=== PATIENT | female | born 1930 | race Caucasian/White ===

== ENCOUNTER 2016-08-11 05:19 | Inpatient (IN) | payer MEDICARE, OTHER ==
--- NOTE | 2016-07-17 12:03 | EKG REPORT ---
SEVERITY:- ABNORMAL ECG - ATRIAL FIBRILLATION, V-RATE 43-53 VENTRICULAR BIGEMINY ANTERIOR INFARCT, AGE INDETERMINATE : Confirmed by: Melo Hong 17-Jul-2016 12:02:24
[2016-07-17 13:03] LABS: HEMATOCRIT 35.2 % (36.0-47.0); HEMOGLOBIN 11.5 g/dL (12.0-15.5); HGB HCT DIFFERENCE -0.7; MEAN CORPUSCULAR HEMOGLOBIN 27.7 pg (27.0-33.4); MEAN CORPUSCULAR HGB CONC 32.6 g/dL (32.0-36.0); MEAN CORPUSCULAR VOLUME 85 fl (80-97); RED BLOOD COUNT 4.15 10^6/uL (3.72-5.28); RED CELL DISTRIBUTION WIDTH 14.8 % (11.5-14.0); WHITE BLOOD COUNT 9.9 10^3/uL (4.0-10.5)
[2016-07-17 13:12] LABS: APPEARANCE,URINE CLEAR; BILIRUBIN,URINE NEGATIVE (NEGATIVE); GLUCOSE, URINE NEGATIVE (NEGATIVE); KETONES,URINE NEGATIVE (NEGATIVE); LEUKOCYTE ESTERASE,URINE TRACE (NEGATIVE); NITRITE,URINE NEGATIVE (NEGATIVE); PROTEIN,URINE NEGATIVE (NEGATIVE); UROBILINOGEN,URINE NEGATIVE mg/dL (<2.0)
[2016-07-17 13:25] LABS: ANION GAP 11 (5-19); BLOOD UREA NITROGEN 14 mg/dL (7-20); CALCIUM 9.7 mg/dL (8.4-10.2); CARBON DIOXIDE 31 mmol/L (22-30); CHLORIDE 98 mmol/L (98-107); CREATININE RESULT 0.59 mg/dL (0.52-1.25); GLUCOSE 122 mg/dL (75-110); SODIUM 139.7 mmol/L (137-145)
[~2016-08-11 05:19] MED LIST: BUPIVACAINE INJ/PF LIPOSOME/PF 266 MG/20 ML SDV INFIL PRN; CEFAZOLIN INJ 1 GM VIAL IV PRN; IBUPROFEN 800 MG in NORMAL SALINE 250 ML IV PRN; LACTATED RINGERS 1000 ML IV PRN; LANSOPRAZOLE 15 MG TAB.RAP.DR PO PRN; LIDOCAINE 0.5% INJ-PF (5 MG/ML) 50 ML SDV SUBCUT PRN; OXYCODONE HCL SR 10 MG TABLET PO PRN; SCOPOLAMINE HYDROBROMIDE 1.5 MG PATCH.TD72 TD PRN; VANCOMYCIN HCL 1,000 MG in DEXTROSE 5%-WATER 250 ML IV PRN
[2016-08-11 06:20] LABS: PROTHROMBIN TIME 13.5 SEC (11.4-15.4)
[2016-08-11 06:21] LABS: PARTIAL THROMBOPLASTIN TIME 28.6 SEC (23.5-35.8)
[2016-08-11] MEDS ORDERED: THROMBIN (BOVINE) TOPICAL 20000 UNIT VIAL ONE (06:44)
[2016-08-11] MEDS ORDERED: BUPIVACAINE INJ/PF LIPOSOME/PF 266 MG/20 ML SDV ONE (06:44)
[2016-08-11] MEDS ORDERED: THROMBIN (BOVINE) TOPICAL 5000 UNIT VIAL ONE (06:44)
[2016-08-11] MEDS ORDERED: PROPOFOL INJ 200 MG/20 ML VIAL IV ONE (07:16)
[2016-08-11] MEDS ORDERED: EPHEDRINE SULFATE INJ 50 MG/1 ML AMPULE ONE (07:16)
[2016-08-11] MEDS ORDERED: FENTANYL CITRATE INJ/PF 100 MCG/2 ML AMPUL ONE (07:16)
[2016-08-11] MEDS ORDERED: MIDAZOLAM 2 MG/2 ML INJ ONE (07:16)
[2016-08-11] MEDS ORDERED: TRANEXAMIC ACID INJ/PF 1,000 MG/10 ML SDV IV ONE (07:16)
[2016-08-11] MEDS ORDERED: MORPHINE SULFATE 10 MG/ML INJ ONE (07:17)
[2016-08-11] MEDS ORDERED: (PENDING PHARMACY ID) (Guaifenesin [Mucinex] 600 MG) PO PRN (08:43)
[2016-08-11] MEDS ORDERED: MECLIZINE HCL 25 MG TABLET PO PRN (08:43)
[2016-08-11] MEDS ORDERED: (PENDING PHARMACY ID) (Bupropion Hcl [Wellbutrin Xl 150 Mg 24hr Tablet] 1 TAB) PO PRN (08:43)
--- NOTE | 2016-08-11 08:43 | Operative Report ---
Operative Report DATE OF SURGERY: 08/11/16 PREOPERATIVE DIAGNOSIS: r hip oa OPERATION: r duglas SURGEON: KATERINE PEREZ ANESTHESIA: Spinal TISSUE REMOVED OR ALTERED: Femoral head to pathology ESTIMATED BLOOD LOSS: 100 PROCEDURE: Implants used: Femur: #4. Striker Accolade 2 stem Acetabular shell:, 52 mm PSL shell Liner:, 36 mm flat cross-link polythene liner Head: 36 mm chrome cobalt head The patient is placed in a, left lateral decubitus position on the operating table. The, right lower extremity and hindquarter is prepped and draped in a sterile fashion. A curvilinear incision was made over the greater trochanter a posterior approach the hip was taken. The femoral head is dislocated and the femoral neck transected using an oscillating saw. Attention was next turned to the acetabulum. Soft tissues cleared off the acetabulum using electrocautery. The acetabulum was then prepared using a series of hemispherical reamers until a, 52 millimeters reamer is seated. Subsequently a D2 millimeters Yvan PSL shell is impacted into position and secured with one screw. A standard flat 36 millimeters cross-link liner is impacted into the shell. Attention was next turned to the femur. Access is gained to the femoral canal using a box osteotome to the piriformis fossa. The femur is then prepared using a series of broaches until a number four broach is seated. A trial reduction was now performed using a 36 millimeters head with, and standard neck. Preoperative leg length was recreated and is excellent anterior posterior stability. A decision was made to proceed with the above construct. All trial implants were removed. The wound is irrigated with pulsed lavage. A number 4 stem is impacted into the femoral canal. A trial reduction was again performed with a 36 mm head and a standard neck. Findings as previously. The hip was dislocated one last time and the final chrome-cobalt head is impacted onto the trunnion. The hip was reduced. Wound is copiously irrigated with pulsed lavage. Sent closed in layers using interrupted Vicryl followed by krunal. A sterile dressing is applied and the patient's returned to recovery room in satisfactory patient.
[2016-08-11] MEDS ORDERED: DIPHENHYDRAMINE HCL 50 MG/ML VIAL IV PRN ×2 (08:45→10:07)
[2016-08-11] MEDS ORDERED: ONDANSETRON HCL INJ/PF 4 MG/2 ML SDV IV PRN (08:45)
[2016-08-11] MEDS ORDERED: ONDANSETRON 4 MG TAB.RAPDIS PO PRN (08:45)
[2016-08-11] MEDS ORDERED: MORPHINE SULFATE 10 MG/ML INJ IV PRN ×3 (08:45)
[2016-08-11] MEDS ORDERED: ACETAMINOPHEN 325 MG TABLET PO PRN (08:45)
[2016-08-11] MEDS ORDERED: MAG HYDROX/AL HYDROX/SIMETH SUSP 30 ML UDCUP PO PRN (08:45)
[2016-08-11] MEDS ORDERED: MORPHINE SULFATE 10 MG/ML INJ IM PRN (08:45)
[2016-08-11] MEDS ORDERED: FUROSEMIDE INJ/PF 40 MG/4 ML SDV ONE (09:02)
[2016-08-11] MEDS: MORPHINE SULFATE 10 MG/ML INJ ONE ×2 (09:26→09:31)
[2016-08-11] MEDS ORDERED: FAMOTIDINE INJ/PF 20 MG/2 ML SDV IV ONE (09:27)
[2016-08-11] MEDS ORDERED: ASPIRIN 325 MG TABLET ONE (09:37)
[2016-08-11] MEDS ORDERED: GUAIFENESIN 600 MG TABLET.SA PO PRN ×2 (09:57→12:45)
[2016-08-11] MEDS ORDERED: ZINC PO SCH (10:00)
[2016-08-11] MEDS ORDERED: D3 PO SCH (10:00)
[2016-08-11] MEDS ORDERED: CALCIUM CARB PO SCH (10:00)
[2016-08-11] MEDS ORDERED: MAGNESIUM PO SCH (10:00)
[2016-08-11] MEDS ORDERED: DABIGATRAN ETEXILATE 150 MG CAPSULE PO SCH (10:00)
[2016-08-11] MEDS ORDERED: (PENDING PHARMACY ID) (Vit C/E/Zn/Coppr/Lutein/Zeaxan [Preservision Areds 2 Softgel] 1 EAC PO SCH (10:00)
[2016-08-11] MEDS ORDERED: RINGERS SOLUTION,LACTATED 500 ML IV PRN (10:01)
[2016-08-11] MEDS ORDERED: PROMETHAZINE HCL INJ 25 MG/1 ML VIAL IV PRN ×2 (10:07)
[2016-08-11] MEDS ORDERED: FENTANYL CITRATE INJ/PF 100 MCG/2 ML AMPUL IV PRN ×3 (10:07)
[2016-08-11 10:19] LABS: TROPONIN I < 0.012 ng/mL
[2016-08-11] MEDS ORDERED: ASPIRIN 325 MG TABLET PO ONE (11:00)
--- NOTE | 2016-08-11 11:55 | EKG REPORT ---
SEVERITY:- ABNORMAL ECG - ATRIAL FIBRILLATION LOW VOLTAGE IN FRONTAL LEADS CONSIDER ANTEROSEPTAL INFARCT : Confirmed by: Melo Hong 11-Aug-2016 11:54:35
[2016-08-11] MEDS ORDERED: DEXAMETHASONE SOD PHOSPHATE INJ 4 MG/1 ML VIAL ONE (12:50)
[2016-08-11] MEDS ORDERED: PHENYLEPHRINE HCL INJ/PF 10 MG/1 ML SDV ONE (12:50)
[2016-08-11] MEDS ORDERED: ONDANSETRON HCL INJ/PF 4 MG/2 ML SDV ONE (12:50)
[2016-08-11] MEDS: FLUTICASONE/SALMETEROL DISKUS 100-50 MCG/DOSE IH SCH ×2 (12:51→17:19)
[2016-08-11] MEDS: RINGERS SOLUTION,LACTATED 1,000 ML IV PRN (12:51)
[2016-08-11] MEDS: SENNOSIDES/DOCUSATE 8.6-50 MG 1 EACH TABLET PO SCH ×2 (13:51→17:19)
[2016-08-11] MEDS: OXYCODONE HCL SR 10 MG TABLET PO SCH ×2 (14:07→23:41)
[2016-08-11] MEDS: RIVASTIGMINE 9.5 MG/24 HR PATCH.TD24 TD SCH (14:07)
[2016-08-11] MEDS: IBUPROFEN 800 MG in NORMAL SALINE 250 ML IV SCH ×2 (14:07→22:42)
[2016-08-11 16:27] LABS: CREATINE KINASE MB 3.69 ng/mL (<4.55)
[2016-08-11 16:28] LABS: TROPONIN I < 0.012 ng/mL
--- NOTE | 2016-08-11 17:08 | CONSULTATION REPORT E ---
Consultation Report NAME: KENIA SENIOR : 1930 AGE: 86Y DATE: 08/11/2016 329 A TO: MONSE PACE M.D. FROM: Requesting Physician REASON FOR CONSULTATION: Chest pain in a patient with coronary artery disease. HISTORY OF PRESENT ILLNESS: The patient is an 86-year-old female with known history of coronary artery disease, history of an old WY, and history of stent in the LAD in the 1998 and a history of diabetes mellitus, COPD, and chronic atrial fibrillation on Pradaxa and also with a history of GERD, had a right hip total arthroplasty today. Postoperatively, in the Post-Anesthesia Care Unit, the patient complained of chest pain which lasted for 10 to 15 minutes which was in the lower front of the chest. When I saw her, the pain had subsided. The pain was associated with some degree of shortness of breath. There was no PND, palpitations, or orthopnea. The patient's heart rate did not increase. The patient has chronic atrial fibrillation. There is no leg edema. There are no TIA or CVA symptoms. PAST MEDICAL HISTORY: Positive for: 1. History of coronary artery disease. 2. History of old myocardial infarction. 3. History of stent in the proximal LAD in 1998. 4. The patient since then has been having chest pain off and on which are thought to be atypical and probably GI related, also suspected was esophageal spasm as a cause of chest pain since the chest pains are more when the patient was lying down or after she eats. It is not related to exertion. Hence it was thought that this was due to either GERD or esophageal spasm, but the patient has not had a barium swallow to prove this. 5. The patient recently had a stress test in May 2016 as a preoperative cardiac risk assessment, and this showed no definite areas of transient perfusion defect overall except for mild diffuse increased uptake in the distal anterior wall with stress imaging as compared to the rest imaging, but there were no corresponding regional wall motion abnormalities. This could be consistent with probable mild ischemia but could well also be related to differences in breast attenuation artifact. When I saw it, I thought this was more artifactual since the perfusion defect was slightly more in the rest images than in the stress images, and the stress images appeared to be normal. Hence my interpretation is that the patient has no reversible ischemia. There is no myocardial infarction. 6. The patient also had an echocardiogram which showed an left ventricular ejection fraction of 65% to 70%. There is mild concentric hypertrophy of the left ventricle with normal wall motion without any regional wall motion abnormality. The left atrial cavity is severely dilated. The right atrial cavity is severely dilated. There is aortic valve leaflet thickening. There is mild aortic valve stenosis with a peak gradient of 16 mmHg and a mean gradient of 9 mmHg, and there was trace to mild aortic regurgitation. There was moderate mitral regurgitation with no mitral valve stenosis. There was mild to moderate tricuspid regurgitation with moderate pulmonary hypertension, right ventricular systolic pressure of 46 mmHg. 7. The patient also has a history of hypertension. 8. She also has a history of diabetes mellitus type 2, non-insulin dependent. 9. She also has a history of GERD and thought to have esophageal spasm. 10. She also has a history of COPD. 11. Anxiety and depression. 12. She has no thyroid disease. 13. She has chronic atrial fibrillation. 14. She has a remote history of CVA from which she is recovered fully, and there is no recurrence of TIA or CVA. 15. There is no history of chronic kidney disease. PAST SURGICAL HISTORY: Positive for. 1. Cardiac catheterization. 2. Stent placement in the coronary artery. 3. Left cataract surgery. 4. Cholecystectomy. 5. Hip replacement. 6. Hysterectomy. 7. Tonsillectomy. 8. Amputation of the toe. FAMILY HISTORY: Positive for cancer. Mother had coronary artery disease and myocardial infarction. Father had CVA. The patient's mother had breast cancer. There is also a family history of heart attack and stroke. SOCIAL HISTORY: She is a former smoker. She quit smoking in 1961. There is no history of EtOH abuse. ALLERGIES: She is allergic to ATORVASTATIN and all statins except Livalo which she can tolerate. CODE STATUS: She is a FULL CODE. She states that her relative is her surrogate healthcare decision maker, the relative being a niece. REVIEW OF SYSTEMS: GENERAL: Denies any fevers, chills, or rigors. HEAD: Denies any headache or head injury. EYES: No history of amblyopia or diplopia. No history of amaurosis fugax. EARS: No history of tinnitus. There is a history of vertigo. The patient takes meclizine off and on. There are no recurrent ear infections. There is no tinnitus. NOSE: There is no hay fever. There is no nosebleed. There are no nasal polyps. MOUTH: No history of altered taste sensation. No ulcers in the mouth. No bleeding from the gums. THROAT: No odynophagia or dysphagia. No history of recurrent sore throats. SKIN: There is no psoriasis. There is no skin cancer. There is no pruritus. There is no yellowish discoloration of the skin. NECK: No painless or painful swelling in the neck. No goiter. No symptoms of C-spine arthritis. LUNGS: History of COPD. No recent wheezing or cough or sputum production. No history of sleep apnea. No history of pulmonary embolism. No history of pleuritic chest pain. No history of hemoptysis. No history of pulmonary embolism. CARDIAC: History of hypertension. History of coronary artery disease, old WY with a stent in the LAD in 1998. History of atypical chest pain thought to be noncardiac and related to GI. She has had several stress tests which have been negative. There is no syncope. The patient has chronic atrial fibrillation. She is on Pradaxa which is not a good drug for her since she has GERD also. There is no leg swelling. There is no PND or orthopnea. There is dyspnea on exertion secondary to her COPD. There is no syncope. RENAL: There is no history of chronic kidney disease. There are no symptoms of hematuria, pyuria, or dysuria. No symptoms of UTI. ENDOCRINE: History of diabetes mellitus type 2, non-insulin dependent. No history of thyroid disease. No history of *------*. No history of heat or cold intolerance. MUSCULOSKELETAL: History of arthritis present. No history of collagen vascular disease. CENTRAL NERVOUS SYSTEM: No history of sleep apnea. No history of seizures, headaches, or migraines. History of vertigo present. A past history of CVA from which is fully recovered; no recurrence of that. She has diabetic neuropathy. PSYCHIATRIC: History of anxiety present and depression present, both are well controlled with medications. No suicidal ideation. VASCULAR: No history of calf or buttock claudication. No history of DVT. HEMATOLOGICAL: No history of bleeding diathesis. No history of clotting disorders. MEDICATIONS: 1. Bupropion, that is Wellbutrin XL 150 mg p.o. daily. 2. Livalo 1 mg p.o. at bedtime. 3. Tylenol 650 mg p.o. q.4 h. p.r.n. 4. Aspirin 325 mg x1. 5. Calcium carbonate/vitamin D 1 tablet p.o. b.i.d. 6. Digoxin 0.125 mg p.o. daily. 7. Benadryl 25 mg IV q.6 h. p.r.n. 8. Zetia 10 mg p.o. every morning. 9. Pepcid 20 mg IV x1. 10. Advair Diskus 100/50 one inhalation q.12 h. 11. Neurontin 600 mg p.o. every morning. 12. Guaifenesin 600 mg p.o. b.i.d. p.r.n. 13. Ringers lactated solution at 150 mL per hour. 14. Vancomycin 1000 mg IV x1. 15. Ibuprofen 800 mg IV q.8 h. 16. Prevacid 30 mg p.o. 6:00 a.m. 17. Magnesium hydroxide/aluminum hydroxide 30 mL p.o. q.6 h. p.r.n. 18. Meclizine 25 mg p.o. as directed p.r.n. 19. Metformin 500 mg p.o. every morning. 20. Midazolam 2 mg IV push x1. 21. Singulair 10 mg p.o. at bedtime. 22. Morphine 2 mg IV q.1 h. p.r.n. 23. Morphine sulfate 4 mg IM q.1 h. p.r.n. 24. Zofran 4 mg p.o. q.6 h. p.r.n. 25. Zofran 4 mg IV push q.6 h. p.r.n. 26. Oxycodone 5 mg p.o. q.6 h. p.r.n. 27. Oxygen 20 mg p.o. q.12 h. 28. multiple vitamin with calcium #5 and iron 1 capsule p.o. daily. 29. Xarelto 15 mg p.o. at bedtime. Her Pradaxa has been stopped. 30. Exelon 1 patch topically to chest wall daily. 31. Senna/docusate 1 each p.o. b.i.d. 32. Spiriva HandiHaler 1 capsule inhalation p.o. every morning. 33. Tranexamic acid injection 1000 mg/10 mL x1. PHYSICAL EXAMINATION: GENERAL: The patient is well built and well nourished, at present in no acute distress. She is slightly drowsy from the anesthesia but oriented x3. VITAL SIGNS: She is afebrile with a temperature of 97.3 degrees Fahrenheit. Pulse is 64 beats per minute. Blood pressure 109/52. Respirations are 19 per minute. O2 saturations are 99% on 2 liters nasal cannula. HEAD: Atraumatic/normocephalic. EYES: Pupils are equal, round, regular, reactive to light and accommodation. Extraocular movements are normal. There is no conjunctival pallor. There is no scleral icterus. EARS: Tympanic membranes are intact. External auditory canals are clear. NOSE: There is no deviated nasal septum. There is no inflammation of the nasal mucous membranes. THROAT: There is no redness of the oropharynx. There are no exudates in the throat. SKIN: There are no skin rashes. There is no petechia or ecchymosis. There are no skin lesions. NECK: Supple. There is no JVD. Carotids are equal. There is no bruit. There is no goiter. There is no lymphadenopathy. Trachea is central. LUNGS: Show diminished air entry, prolonged expiration, otherwise lungs are clear without any rhonchi, rales, or wheezing. On percussion there is hyperresonance. HEART: S1, S2 is heard. There is a variable S1 in intensity. There is no S3 gallop. There is no S4 gallop. There is mild mitral regurgitation murmur present. There is no rub. ABDOMEN: Soft, nontender. There is no hepatosplenomegaly. Bowel sounds are well heard. There is no rebound, guarding, or rigidity. There is no hepatosplenomegaly. EXTREMITIES: Femorals are diminished. There is no femoral bruit. Leg pulses are diminished. The right hip is in a dressing which is dry. There is no pedal edema. There is no DVT or cellulitis. There is no calf tenderness. CENTRAL NERVOUS SYSTEM: The patient is conscious, awake, slightly drowsy due to the anesthesia that has been given to her but oriented x3 with no focal deficits. PSYCHIATRIC: The patient's judgement and insight are intact. Her affect is normal even though the patient is drowsy. DIAGNOSTIC DATA: The patient's EKG done on 08/11/2016 shows atrial fibrillation, low voltage, anteroseptal infarct old versus lead placement. No significant changes. No acute changes. The patient's chest x-ray shows moderate cardiomegaly without any congestive heart failure. There are airspace opacities noted in the left lobe, could represent atelectasis, edema or infiltrate, doubt that this is an infiltrate. The patient's white count is 9,900, hemoglobin is 11.5, hematocrit is 35.2, platelet count is 405,000. The patient's first set of CPK-MB and troponin-I is negative. The CPK is slightly elevated at 142. The patient's sodium is 139.7, potassium 4.0, chloride 98, CO2 is 31, the patient's BUN is 14, creatinine 0.59, GFR is greater than 60, glucose is 122, her calcium is 9.7. Her hemoglobin A1c is 5.6. IMPRESSION: 1. Chest pain, doubt anginal. The patient has a long history of noncardiac chest pain and atypical chest pain which is clearly noncardiac. 2. Status post right hip total arthroplasty. 3. Coronary artery disease, history of old WY, history of stent in the LAD. 4. Hypertension, well controlled. 5. Diabetes mellitus, non-insulin dependent. 6. COPD appears to be stable. 7. Hyperlipidemia. 8. GERD. 9. Anxiety/depression. RECOMMENDATIONS: Continue the current medication. Note that the patient use to be on Cardizem CD, will restart the patient on Cardizem CD p.o. at bedtime. Continue Digoxin, will check a Digoxin level in the morning. We will get serial EKGs and enzymes. In view of the patient having GI symptoms, would not use Pradaxa. Instead of that would change the patient to Xarelto. At present, the patient is on 15 mg p.o. at bedtime in view of the patient's age which is 86 years old. Will follow with you. Dr. Hong will see the patient in the morning. Will get serial EKGs and enzymes as mentioned earlier. Note, 40 minutes spent on the patient with more than 50% of the time spent on direct patient care and also discussions with the anesthesiologist and also with Dr. Barbour on this case. DICTATING PHYSICIAN: MONSE PACE M.D. [id number] PHY#: [id number] ID: [id number] JOB#: [id number] ACCT: [id number] cc:MONSE PACE M.D. >
[2016-08-11] MEDS: CALCIUM CARBONATE 250 MG/VITAMIN D3 125 UNIT TABLET PO SCH (17:19)
[2016-08-11] MEDS ORDERED: VANCOMYCIN HCL 1,000 MG in DEXTROSE 5%-WATER 250 ML IV ONE (20:45)
[2016-08-11] MEDS ORDERED: RIVAROXABAN 10 MG TABLET PO SCH ×2 (22:00)
[2016-08-11] MEDS: RIVAROXABAN 15 MG TABLET PO SCH (22:43)
[2016-08-11] MEDS: MONTELUKAST SODIUM 10 MG TABLET PO SCH (22:43)
[2016-08-12 00:27] LABS: CREATINE KINASE MB 3.24 ng/mL (<4.55)
[2016-08-12 00:34] LABS: TROPONIN I < 0.012 ng/mL
[2016-08-12] MEDS: RINGERS SOLUTION,LACTATED 1,000 ML IV PRN ×2 (00:55→09:42)
[2016-08-12] MEDS ORDERED: DEXTROSE 50%-WATER SYRINGE 25 GM/50 ML DOSE IV PRN (04:48)
[2016-08-12] MEDS ORDERED: GLUCAGON,HUMAN RECOMB 1 MG INJ IM PRN (04:48)
[2016-08-12] MEDS ORDERED: INSULIN LISPRO 100 UNIT/ML 3 ML VIAL SUBCUT PRN (04:48)
[2016-08-12] MEDS ORDERED: DEXTROSE 50%-WATER SYRINGE 12.5 GM/25 ML DOSE IV PRN (04:48)
[2016-08-12] MEDS ORDERED: DEXTROSE 40% GEL 15 GM TUBE PO PRN (04:48)
[2016-08-12] MEDS ORDERED: DEXTROSE 40% GEL 15 GM TUBE X 2 PO PRN (04:48)
[2016-08-12] MEDS: LANSOPRAZOLE 30 MG TAB.RAP.DR PO SCH (05:50)
[2016-08-12] MEDS: IBUPROFEN 800 MG in NORMAL SALINE 250 ML IV SCH ×2 (05:50→17:16)
--- NOTE | 2016-08-12 06:53 | PDOC PROGRESS REPORT ---
Subjective Progress Note for:: 08/12/16 Subjective:: Patient denies any pain but seems to be slightly confused this morning Physical Exam Vital Signs: Temp Pulse Resp BP Pulse Ox 36.4 C 55 L 18 118/58 L 100 08/12/16 03:53 08/12/16 03:53 08/12/16 03:53 08/12/16 03:53 08/12/16 03:53 Intake & Output 08/10/16 08/11/16 08/12/16 06:59 06:59 06:59 Intake Total 0 3775 Output Total 4450 Balance 0 -675 Weight 73.6 kg General appearance: PRESENT: no acute distress Head exam: PRESENT: normocephalic Eye exam: PRESENT: EOMI Respiratory exam: PRESENT: unlabored Pulses: PRESENT: +1 pedal pulses bilateral Vascular exam: PRESENT: normal capillary refill GI/Abdominal exam: PRESENT: soft Extremities exam: PRESENT: other - Right hip dressing is clean dry and intact. Leg lengths are equal. Neurovascular examinations intact. Results Laboratory Results: 07/17/16 11:40 08/11/16 05:50 08/11/16 08/11/16 08/11/16 09:39 09:39 15:46 Creatine Kinase 142 H 226 H CK-MB (CK-2) 2.80 Troponin I < 0.012 08/11/16 08/11/16 08/11/16 15:46 23:48 23:48 Creatine Kinase 246 H CK-MB (CK-2) 3.69 3.24 Troponin I < 0.012 < 0.012 Impressions: Chest X-Ray 07/17/16 12:09 IMPRESSION: Airspace opacities noted the left lung base which could represent atelectasis, developing infiltrate, or edema. Overall this appears to have worsened slightly since 05/2016. Stable moderate cardiomegaly. Pelvis X-Ray 08/11/16 08:46 IMPRESSION: Satisfactory postoperative right hip. Status: Imported from PACS Assessment & Plan - Diagnosis (1) Arthritis of right hip Is this a current diagnosis for this admission?: YesPlan: 86-year-old white female postop day 1 right hip arthroplasty. Overall she seems to doing relatively well, but she may be over medicated explaining her confusion Discontinue the use of OxyContin. We'll continue use of oxycodone every 6 when necessary. She also has a relatively low urine output and I've asked that she received half a liter of IV normal saline She'll continue with physical therapy and anticipate discharge to correction facility on . - Time Time Spent with patient: 15-24 minutes Anticipated discharge: SNF Within: within 48 hours
[2016-08-12] MEDS ORDERED: NORMAL SALINE 500 ML IV ONE (07:00)
--- NOTE | 2016-08-12 07:20 | EKG REPORT ---
SEVERITY:- ABNORMAL ECG - ATRIAL FIBRILLATION PROBABLE INFERIOR INFARCT, AGE INDETERMINATE ANTERIOR INFARCT, OLD : Confirmed by: Tonya Burnett MD 12-Aug-2016 07:19:55
[2016-08-12 07:50] LABS: HEMATOCRIT 27.2 % (36.0-47.0); HEMOGLOBIN 8.8 g/dL (12.0-15.5); HGB HCT DIFFERENCE -0.8; MEAN CORPUSCULAR HEMOGLOBIN 27.8 pg (27.0-33.4); MEAN CORPUSCULAR HGB CONC 32.4 g/dL (32.0-36.0); MEAN CORPUSCULAR VOLUME 86 fl (80-97); RED BLOOD COUNT 3.18 10^6/uL (3.72-5.28); RED CELL DISTRIBUTION WIDTH 16.5 % (11.5-14.0); WHITE BLOOD COUNT 7.6 10^3/uL (4.0-10.5)
[2016-08-12] MEDS ORDERED: MULTIVITAMIN PO SCH (08:00)
[2016-08-12] MEDS ORDERED: LANSOPRAZOLE 30 MG TAB.RAP.DR PO SCH (08:00)
[2016-08-12] MEDS ORDERED: PITAVASTATIN CALCIUM 1 MG PO SCH (08:00)
[2016-08-12 08:23] LABS: ALANINE AMINOTRANSFERASE 666 U/L (9-52); ALBUMIN 2.9 g/dL (3.5-5.0); ALKALINE PHOSPHATASE 347 U/L (38-126); ANION GAP 6 (5-19); BILIRUBIN,TOTAL 1.2 mg/dL (0.2-1.3); BLOOD UREA NITROGEN 29 mg/dL (7-20); CALCIUM 8.9 mg/dL (8.4-10.2); CARBON DIOXIDE 33 mmol/L (22-30); CHLORIDE 102 mmol/L (98-107); CHOLESTEROL 98.44 mg/dL (0-200); CREATININE RESULT 1.02 mg/dL (0.52-1.25); Direct HDL 39 mg/dL (>40); GLUCOSE 96 mg/dL (75-110); POTASSIUM 4.3 mmol/L (3.6-5.0); SODIUM 141.2 mmol/L (137-145); TOTAL PROTEIN 4.7 g/dL (6.3-8.2); TRIGLYCERIDES 55 mg/dL (<150)
[2016-08-12 08:34] LABS: CREATINE KINASE MB 2.27 ng/mL (<4.55); DIRECT LDL 45 mg/dL (<100)
[2016-08-12 08:35] LABS: ASPARTATE AMINO TRANSFERASE 835 U/L (14-36); TROPONIN I < 0.012 ng/mL
[2016-08-12] MEDS: SENNOSIDES/DOCUSATE 8.6-50 MG 1 EACH TABLET PO SCH ×2 (09:36→17:19)
[2016-08-12] MEDS: CALCIUM CARBONATE 250 MG/VITAMIN D3 125 UNIT TABLET PO SCH ×2 (09:37→17:19)
[2016-08-12] MEDS: FUROSEMIDE 20 MG TABLET PO SCH (09:37)
[2016-08-12] MEDS: OXYCODONE HCL IR 5 MG TABLET PO PRN (09:38)
[2016-08-12] MEDS: PRENATAL VITAMIN W-O CA NO5/FE FUMARATE/FA CAPSULE PO SCH (09:38)
[2016-08-12] MEDS: METFORMIN HCL 500 MG TABLET PO SCH (09:38)
[2016-08-12] MEDS: DIGOXIN 0.125 MG TABLET PO SCH (09:39)
[2016-08-12] MEDS: DILTIAZEM HCL 120 MG CAP.SR.24H PO SCH (09:39)
[2016-08-12] MEDS: GABAPENTIN 300 MG CAPSULE PO SCH (09:39)
[2016-08-12] MEDS: EZETIMIBE 10 MG TABLET PO SCH (09:39)
[2016-08-12] MEDS: FLUTICASONE/SALMETEROL DISKUS 100-50 MCG/DOSE IH SCH ×2 (09:40→17:18)
[2016-08-12] MEDS: TIOTROPIUM BROMIDE DPI 5 CAP/KIT (18 MCG/CAP) IH SCH (09:41)
[2016-08-12] MEDS: RIVASTIGMINE 9.5 MG/24 HR PATCH.TD24 TD SCH (09:42)
--- NOTE | 2016-08-12 10:50 | PDOC PROGRESS REPORT ---
Subjective Progress Note for:: 08/12/16 Subjective:: Patient seems to be doing better with gradual improvement. Patient is status post hip surgery and doing well. Pt is denying any chest arm or neck discomfort. Patient denying any PND, orthopnea. Patient denied any sustained palpitations, dizziness, syncope, near syncope. Patient denying any fever chills. Patient denying any other significant discomfort. Patient is maintaining atrial fibrillation. Review of systems: Rest review of systems negative. Medications: Medications have been reviewed. Physical Exam Vital Signs: Temp Pulse Resp BP Pulse Ox 98.4 F 62 18 114/47 L 100 08/12/16 08:02 08/12/16 08:02 08/12/16 08:02 08/12/16 08:02 08/12/16 08:02 Intake & Output 08/11/16 08/12/16 08/13/16 06:59 06:59 06:59 Intake Total 0 5153 Output Total 4450 Balance 0 703 Weight 73.6 kg Exam: GENERAL: well-nourished and in no acute distress. Alert and oriented x3 HEAD: Atraumatic, normocephalic. EYES: Pupils equal round and reactive to light, extraocular movements intact, sclera anicteric, conjunctiva are normal. ENT: TMs normal, nares patent, oropharynx clear without exudates. Moist mucous membranes. No oral ulcerations or bleeding gums noted NECK: supple without lymphadenopathy. Trachea is central. No cervical or axillary lymphadenopathy noted. Carotids are 2+, JVD WNL LUNGS: Respiration seems nonlabored, no significant accessory muscle action noted. Breath sounds clear to auscultation bilaterally and equal. No wheezes rales or rhonchi. No significant dullness noted on percussion. CHEST: Palpation of the chest wall shows no significant chest wall tenderness or abnormalities. 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 ABDOMEN: Soft, no significant tenderness appreciated, normoactive bowel sounds. No guarding, no rebound. No rigidity noted . No masses appreciated. EXTREMITIES: Pedal pulses are 1-2+, no calf tenderness noted. No clubbing or cyanosis.trace to 1+ pedal edema noted. Scar of right hip surgery noted NEUROLOGICAL: Focused neurological exam showed no significant neurologic deficit. Normal speech, no focal weakness appreciated. PSYCH: Normal mood, normal affect. Judgment and insight within normal limits. SKIN: No significant ecchymosis, rash, ulcerations or signs of pruritus noted. MUSCULOSKELETAL EXAM: No significant joint swelling noted. A scar of right hip surgery noted Results Laboratory Results: 08/12/16 07:36 08/12/16 07:36 08/12/16 08/12/16 07:36 07:36 WBC 7.6 RBC 3.18 L Hgb 8.8 L Hct 27.2 L MCV 86 MCH 27.8 MCHC 32.4 RDW 16.5 H Plt Count 240 Sodium 141.2 Potassium 4.3 Chloride 102 Carbon Dioxide 33 H Anion Gap 6 BUN 29 H Creatinine 1.02 Est GFR ( Amer) > 60 Est GFR (Non-Af Amer) 52 L Glucose 96 Calcium 8.9 Total Bilirubin 1.2 AST 835 H ALT 666 H Alkaline Phosphatase 347 H Total Protein 4.7 L Albumin 2.9 L Triglycerides 55 Cholesterol 98.44 LDL Cholesterol Direct 45 VLDL Cholesterol 11.0 HDL Cholesterol 39 L 08/11/16 08/11/16 08/11/16 09:39 09:39 15:46 Creatine Kinase 142 H 226 H CK-MB (CK-2) 2.80 Troponin I < 0.012 08/11/16 08/11/16 08/11/16 15:46 23:48 23:48 Creatine Kinase 246 H CK-MB (CK-2) 3.69 3.24 Troponin I < 0.012 < 0.012 08/12/16 08/12/16 07:36 07:36 Creatine Kinase 219 H CK-MB (CK-2) 2.27 Troponin I < 0.012 EKG Comments: Atrial fibrillation, abnormal Q waves anterior precordial lead and borderline Q inferior lead but no acute ST-T wave changes. Relatively unchanged. Impressions: Chest X-Ray 07/17/16 12:09 IMPRESSION: Airspace opacities noted the left lung base which could represent atelectasis, developing infiltrate, or edema. Overall this appears to have worsened slightly since 05/2016. Stable moderate cardiomegaly. Pelvis X-Ray 08/11/16 08:46 IMPRESSION: Satisfactory postoperative right hip. Assessment & Plan - Diagnosis (1) Coronary artery disease Qualifiers: Coronary Disease-Associated Artery/Lesion type: [place] artery [place] vs. transplanted heart: [place] heart Associated angina: angina presence unspecified Qualified Code(s): I25.10 - Atherosclerotic heart disease of [place] coronary artery without angina pectoris Is this a current diagnosis for this admission?: YesPlan: Continue current management plans. Patient seems stable on current therapeutic regimen. (2) Atrial fibrillation Qualifiers: Atrial fibrillation type: chronic Qualified Code(s): I48.2 - Chronic atrial fibrillation Is this a current diagnosis for this admission?: YesPlan: Rate is well controlled. Would recommend chronic anticoagulation. (3) Fracture of right hip Qualifiers: Encounter type: subsequent encounter Is this a current diagnosis for this admission?: YesPlan: Patient has arthroplasty and currently stable. Continue DVT prophylaxis, physical therapy and pain control. (4) Hypertension Qualifiers: Hypertension type: essential hypertension Qualified Code(s): I10 - Essential (primary) hypertension Is this a current diagnosis for this admission?: YesPlan: Blood pressure reasonably well controlled. Continue current regimen (5) Diabetes Qualifiers: Diabetes mellitus type: type 2 Diabetes mellitus complication status: with unspecified complications Is this a current diagnosis for this admission?: YesPlan: Currently stable. (6) Dyslipidemia Is this a current diagnosis for this admission?: YesPlan: Continue current antilipid therapy. (7) Abnormal liver function tests Is this a current diagnosis for this admission?: YesPlan: Could be postsurgical, effect of anesthesia etc. Recommend follow-up liver enzymes, consider GI/internal medicine evaluation if considered necessary. - Notes Notes: Patient is noted to be generally stable without any chest pain or shortness of breath. Patient would benefit from chronic anticoagulation. This is predominantly for atrial fibrillation. - Time Time with patient: Greater than 35 minutes - CODE STATUS was discussed, patient remains full code. Surrogate decision-maker unchanged. Multiple medical problems were addressed.More than 50% of the time spent coordinating care, discussing management plans with involved caregivers. Management plans discussed with involved personnels. Medical decision making was of mild to moderate complexity. Patient currently full code. Medications reviewed and adjusted accordingly: Yes
[2016-08-12] MEDS: MONTELUKAST SODIUM 10 MG TABLET PO SCH (23:57)
[2016-08-12] MEDS: RIVAROXABAN 15 MG TABLET PO SCH (23:59)
[2016-08-13] MEDS: OXYCODONE HCL IR 5 MG TABLET PO PRN ×2 (02:13→11:27)
[2016-08-13] MEDS: IBUPROFEN 800 MG in NORMAL SALINE 250 ML IV SCH ×4 (05:51→18:00)
[2016-08-13] MEDS: LANSOPRAZOLE 30 MG TAB.RAP.DR PO SCH (05:51)
[2016-08-13] MEDS: METFORMIN HCL 500 MG TABLET PO SCH (08:00)
[2016-08-13 08:08] LABS: HEMATOCRIT 23.6 % (36.0-47.0); HEMOGLOBIN 7.8 g/dL (12.0-15.5); HGB HCT DIFFERENCE -0.2; MEAN CORPUSCULAR HEMOGLOBIN 27.7 pg (27.0-33.4); MEAN CORPUSCULAR HGB CONC 33.2 g/dL (32.0-36.0); MEAN CORPUSCULAR VOLUME 84 fl (80-97); RED BLOOD COUNT 2.82 10^6/uL (3.72-5.28); RED CELL DISTRIBUTION WIDTH 16.4 % (11.5-14.0); WHITE BLOOD COUNT 8.3 10^3/uL (4.0-10.5)
[2016-08-13] MEDS ORDERED: NORMAL SALINE 250 ML IV PRN (09:54)
--- NOTE | 2016-08-13 09:57 | PDOC PROGRESS REPORT ---
Subjective Progress Note for:: 08/13/16 Subjective:: Patient with minor complaints of discomfort Physical Exam Vital Signs: Temp Pulse Resp BP Pulse Ox 36.7 C 73 20 121/48 L 92 08/13/16 07:31 08/13/16 07:31 08/13/16 07:31 08/13/16 07:31 08/13/16 07:31 Intake & Output 08/12/16 08/13/16 08/14/16 06:59 06:59 06:59 Intake Total 5153 4086 Output Total 4450 2200 Balance 703 1886 Weight 73.6 kg 73.8 kg General appearance: PRESENT: no acute distress Head exam: PRESENT: normocephalic Respiratory exam: PRESENT: unlabored Pulses: PRESENT: +1 pedal pulses bilateral Vascular exam: PRESENT: normal capillary refill GI/Abdominal exam: PRESENT: soft Extremities exam: PRESENT: other - Right hip dressing clean dry and intact. Leg lengths are equal. Neurovascular examinations intact. Results Laboratory Results: 08/13/16 04:02 08/12/16 07:36 08/13/16 04:02 WBC 8.3 RBC 2.82 L Hgb 7.8 L Hct 23.6 L MCV 84 MCH 27.7 MCHC 33.2 RDW 16.4 H Plt Count 223 08/11/16 08/11/16 08/11/16 09:39 09:39 15:46 Creatine Kinase 142 H 226 H CK-MB (CK-2) 2.80 Troponin I < 0.012 08/11/16 08/11/16 08/11/16 15:46 23:48 23:48 Creatine Kinase 246 H CK-MB (CK-2) 3.69 3.24 Troponin I < 0.012 < 0.012 08/12/16 08/12/16 07:36 07:36 Creatine Kinase 219 H CK-MB (CK-2) 2.27 Troponin I < 0.012 Impressions: Chest X-Ray 07/17/16 12:09 IMPRESSION: Airspace opacities noted the left lung base which could represent atelectasis, developing infiltrate, or edema. Overall this appears to have worsened slightly since 05/2016. Stable moderate cardiomegaly. Pelvis X-Ray 08/11/16 08:46 IMPRESSION: Satisfactory postoperative right hip. Status: Imported from PACS Assessment & Plan - Diagnosis (1) Arthritis of right hip Is this a current diagnosis for this admission?: YesPlan: Patient postop day 2, status post right hip arthroplasty. Overall she seems to doing relatively well. She is made limited progress with physical therapy ablating 40 feet. Anticipate discharge to custodial facility tomorrow. (2) Acute blood loss anemia Is this a current diagnosis for this admission?: YesPlan: Patient's postoperative hematocrit has dropped to 23.5%. She'll receive 2 units of packed red blood cells with a repeat hematocrit in the morning. - Time Time Spent with patient: 15-24 minutes Anticipated discharge: SNF Within: within 24 hours
--- NOTE | 2016-08-13 11:15 | PDOC PROGRESS REPORT ---
Subjective Progress Note for:: 08/13/16 Subjective:: Patient seems to be doing better with gradual improvement. Patient is status post hip surgery and doing well. Pt is denying any chest arm or neck discomfort. Patient denying any PND, orthopnea. Patient denied any sustained palpitations, dizziness, syncope, near syncope. Patient denying any fever chills. Patient denying any other significant discomfort. Patient is maintaining atrial fibrillation. Heart rate is well controlled Review of systems: Rest review of systems negative. Medications: Medications have been reviewed. Physical Exam Vital Signs: Temp Pulse Resp BP Pulse Ox 98.0 F 73 20 121/48 L 92 08/13/16 07:31 08/13/16 07:31 08/13/16 07:31 08/13/16 07:31 08/13/16 07:31 Intake & Output 08/12/16 08/13/16 08/14/16 06:59 06:59 06:59 Intake Total 5153 4086 Output Total 4450 2200 Balance 703 1886 Weight 73.6 kg 73.8 kg Exam: GENERAL: well-nourished and in no acute distress. Alert and oriented x3 HEAD: Atraumatic, normocephalic. EYES: Pupils equal round and reactive to light, extraocular movements intact, sclera anicteric, conjunctiva are normal. ENT: TMs normal, nares patent, oropharynx clear without exudates. Moist mucous membranes. No oral ulcerations or bleeding gums noted NECK: supple without lymphadenopathy. Trachea is central. No cervical or axillary lymphadenopathy noted. Carotids are 2+, JVD WNL LUNGS: Respiration seems nonlabored, no significant accessory muscle action noted. Breath sounds clear to auscultation bilaterally and equal. No wheezes rales or rhonchi. No significant dullness noted on percussion. CHEST: Palpation of the chest wall shows no significant chest wall tenderness or abnormalities. 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 ABDOMEN: Soft, no significant tenderness appreciated, normoactive bowel sounds. No guarding, no rebound. No rigidity noted . No masses appreciated. EXTREMITIES: Pedal pulses are 1-2+, no calf tenderness noted. No clubbing or cyanosis.trace to 1+ pedal edema noted NEUROLOGICAL: Focused neurological exam showed no significant neurologic deficit. Normal speech, no focal weakness appreciated. PSYCH: Normal mood, normal affect. Judgment and insight within normal limits. SKIN: No significant ecchymosis, rash, ulcerations or signs of pruritus noted. MUSCULOSKELETAL EXAM: No significant joint swelling noted. Scar of right hip surgery noted Results Laboratory Results: 08/13/16 04:02 08/12/16 07:36 08/11/16 08/13/16 05:50 04:02 WBC 8.3 RBC 2.82 L Hgb 7.8 L Hct 23.6 L MCV 84 MCH 27.7 MCHC 33.2 RDW 16.4 H Plt Count 223 Blood Type O NEGATIVE Antibody Screen NEGATIVE 08/11/16 08/11/16 08/11/16 09:39 09:39 15:46 Creatine Kinase 142 H 226 H CK-MB (CK-2) 2.80 Troponin I < 0.012 08/11/16 08/11/16 08/11/16 15:46 23:48 23:48 Creatine Kinase 246 H CK-MB (CK-2) 3.69 3.24 Troponin I < 0.012 < 0.012 08/12/16 08/12/16 07:36 07:36 Creatine Kinase 219 H CK-MB (CK-2) 2.27 Troponin I < 0.012 Impressions: Chest X-Ray 07/17/16 12:09 IMPRESSION: Airspace opacities noted the left lung base which could represent atelectasis, developing infiltrate, or edema. Overall this appears to have worsened slightly since 05/2016. Stable moderate cardiomegaly. Pelvis X-Ray 08/11/16 08:46 IMPRESSION: Satisfactory postoperative right hip. Assessment & Plan - Diagnosis (1) Coronary artery disease Qualifiers: Coronary Disease-Associated Artery/Lesion type: [place] artery [place] vs. transplanted heart: [place] heart Associated angina: angina presence unspecified Qualified Code(s): I25.10 - Atherosclerotic heart disease of [place] coronary artery without angina pectoris Is this a current diagnosis for this admission?: Yes (2) Atrial fibrillation Qualifiers: Atrial fibrillation type: chronic Qualified Code(s): I48.2 - Chronic atrial fibrillation Is this a current diagnosis for this admission?: Yes (3) Fracture of right hip Qualifiers: Encounter type: subsequent encounter Is this a current diagnosis for this admission?: Yes (4) Hypertension Qualifiers: Hypertension type: essential hypertension Qualified Code(s): I10 - Essential (primary) hypertension Is this a current diagnosis for this admission?: Yes (5) Diabetes Qualifiers: Diabetes mellitus type: type 2 Diabetes mellitus complication status: with unspecified complications Is this a current diagnosis for this admission?: Yes (6) Dyslipidemia Is this a current diagnosis for this admission?: Yes (7) Abnormal liver function tests Is this a current diagnosis for this admission?: Yes - Notes Notes: Coronary artery disease: Patient has a history of stent placement. Results of previous stress tests reviewed. Patient is symptomatically stable. Continue medical management. Atrial fibrillation: This is chronic. Would recommend chronic anticoagulation. Status post right hip arthroplasty: Patient being followed by orthopedic surgeon. Recommend DVT prophylaxis and rehabilitation. Hypertension: Reasonably well controlled. Diabetes: Reasonably well controlled. Dyslipidemia: Continue antilipid therapy. Abnormal liver function test: Cause not clear. Recommend follow-up, GI consultation etc. Possible CHF Patient's old records reviewed. It seems she only had a stress test and not a echocardiogram. In view of abnormal liver function test, history of CAD, chronic atrial fibrillation, abnormal EKG, have his scheduled patient for a 2-D echocardiogram. - Time Time with patient: 15-25 minutes - CODE STATUS was discussed, patient remains full code. Surrogate decision-maker unchanged. Multiple medical problems were addressed.More than 50% of the time spent coordinating care, discussing management plans with involved caregivers. Management plans discussed with involved personnels. Medical decision making was of moderate complexity.
[2016-08-13] MEDS: PRENATAL VITAMIN W-O CA NO5/FE FUMARATE/FA CAPSULE PO SCH (11:26)
[2016-08-13] MEDS: EZETIMIBE 10 MG TABLET PO SCH (11:27)
[2016-08-13] MEDS: DILTIAZEM HCL 120 MG CAP.SR.24H PO SCH (11:27)
[2016-08-13] MEDS: CALCIUM CARBONATE 250 MG/VITAMIN D3 125 UNIT TABLET PO SCH ×2 (11:27→18:57)
[2016-08-13] MEDS: SENNOSIDES/DOCUSATE 8.6-50 MG 1 EACH TABLET PO SCH ×2 (11:28→18:57)
[2016-08-13] MEDS: GABAPENTIN 300 MG CAPSULE PO SCH (11:28)
[2016-08-13] MEDS: DIGOXIN 0.125 MG TABLET PO SCH (11:28)
[2016-08-13] MEDS: FLUTICASONE/SALMETEROL DISKUS 100-50 MCG/DOSE IH SCH ×2 (11:29→18:57)
[2016-08-13] MEDS: FUROSEMIDE 20 MG TABLET PO SCH (11:29)
[2016-08-13] MEDS: TIOTROPIUM BROMIDE DPI 5 CAP/KIT (18 MCG/CAP) IH SCH (11:29)
[2016-08-13] MEDS: RIVASTIGMINE 9.5 MG/24 HR PATCH.TD24 TD SCH (11:29)
--- NOTE | 2016-08-13 18:44 | XCELERA REPORT ---
[address] [address] Transthoracic Echocardiogram Report Name: KENIA SENOIR Age: 86 yrs Gender: Female : 1930 Patient Status: Inpatient Patient Location: [id number]\S\329\S\A Study Date: 08/13/2016 04:02 PM Height: 62 in Weight: 162 lb BSA: 1.7 m2 Procedure: A complete two-dimensional transthoracic echocardiogram was performed (2D, M-mode, spectral and color flow Doppler). The study was technically difficult with many images being suboptimal in quality. Reason For Study: CAD, Afib Ordering Physician: MELO TOVAR Performed By: Nikia Aguirre Interpretation Summary The left ventricular ejection fraction is normal. There is borderline concentric left ventricular hypertrophy. The left ventricle is grossly normal size. LV diastolic function could not be adequately assessed. Wall motion cannot be accurately commented on, but no definite regional wall motion abnormalities noted. The right ventricle is borderline dilated. The right ventricular systolic function is normal. The right atrium is moderately dilated. The left atrium is moderately dilated. There is no mitral valve stenosis. There is a mild to moderate amount of mitral regurgitation There is a mild amount of aortic regurgitation There is no aortic valve stenosis There is a trace to mild amount of tricuspid regurgitation There is moderate to severe pulmonary hypertension by echo Best estimated right ventricular systolic pressure is elevated at 50- 60mmHg. There is no pericardial effusion. MMode/2D Measurements \T\ Calculations RVDd: 3.1 cm LVIDd: 4.9 cm FS: 38.7 % Ao root diam: IVSd: 1.0 cm LVIDs: 3.0 cm EDV(Teich): 2.8 cm LVPWd: 0.99 cm 110.2 ml Ao root area: ESV(Teich): 34.3 ml 6.1 cm2 EF(Teich): LA dimension: 68.9 % 4.8 cm LVOT diam: 2.1 cm LA A2Cs: LA A4Cs: LA length: 7.8 cm LVOT area: 3.4 cm2 29.3 cm2 36.3 cm2 LA Vol Index (BP): LA Volume: 115.5 ml 66.1 ml/m2 Doppler Measurements \T\ Calculations MV E max scout: MV P1/2t max scout: Ao V2 max: AI max scout: 128.3 cm/sec 129.6 cm/sec 281.7 cm/sec 483.2 cm/sec MV A max scuot: MV P1/2t: 50.2 msec Ao max PG: AI max P.5 cm/sec MVA(P1/2t): 4.4 cm2 31.8 mmHg 93.4 mmHg MV E/A: 3.3 MV dec slope: Ao V2 mean: AI dec slope: 178.3 cm/sec 323.7 cm/sec2 755.7 cm/sec2 Ao mean PG: AI P1/2t: MV dec time: 15.8 mmHg 437.2 msec 0.16 sec Ao V2 VTI: 53.4 cm MAGY(I,D): 2.0 cm2 MAGY(V,D): 1.8 cm2 LV V1 max PG: SV(LVOT): 105.9 ml PA V2 max: TR max scout: 9.0 mmHg 119.0 cm/sec 390.9 cm/sec LV V1 mean PG: PA max PG: TR max P.8 mmHg 5.7 mmHg 61.1 mmHg LV V1 max: 149.6 cm/sec LV V1 mean: 100.4 cm/sec LV V1 VTI: 31.5 cm Left Ventricle The left ventricle is grossly normal size. There is borderline concentric left ventricular hypertrophy. The left ventricular ejection fraction is normal. LV diastolic function could not be adequately assessed. Wall motion cannot be accurately commented on, but no definite regional wall motion abnormalities noted. Right Ventricle The right ventricle is borderline dilated. There is normal right ventricular wall thickness. The right ventricular systolic function is normal. Atria The right atrium is moderately dilated. The left atrium is moderately dilated. Interarterial septum not well visualized and not well dopplered. Cannot comment on ASD/PFO presence. Mitral Valve The mitral valve is grossly normal. There is no mitral valve stenosis. There is a mild to moderate amount of mitral regurgitation. Aortic Valve The aortic valve is grossly normal. There is no aortic valve stenosis. There is a mild amount of aortic regurgitation. Tricuspid Valve The tricuspid valve is not well visualized, but is grossly normal. There is no tricuspid stenosis. There is a trace to mild amount of tricuspid regurgitation. There is moderate to severe pulmonary hypertension by echo. Best estimated right ventricular systolic pressure is elevated at 50- 60mmHg. Pulmonic Valve The pulmonic valve is not well visualized. Great Vessels The aortic root is not well visualized. The inferior vena cava appeared dilated and decreased < 50% with respiration (RAP 15-20 mmHg). Effusions There is no pericardial effusion. : MELO TOVAR > Melo Tovar
[2016-08-13] MEDS: MONTELUKAST SODIUM 10 MG TABLET PO SCH (23:45)
[2016-08-13] MEDS: RIVAROXABAN 15 MG TABLET PO SCH (23:45)
[2016-08-14 05:11] LABS: HEMATOCRIT 29.5 % (36.0-47.0); HEMOGLOBIN 9.7 g/dL (12.0-15.5); HGB HCT DIFFERENCE -0.4; MEAN CORPUSCULAR HEMOGLOBIN 27.6 pg (27.0-33.4); MEAN CORPUSCULAR HGB CONC 32.9 g/dL (32.0-36.0); MEAN CORPUSCULAR VOLUME 84 fl (80-97); RED BLOOD COUNT 3.51 10^6/uL (3.72-5.28); RED CELL DISTRIBUTION WIDTH 16.2 % (11.5-14.0); WHITE BLOOD COUNT 12.1 10^3/uL (4.0-10.5)
[2016-08-14] MEDS: LANSOPRAZOLE 30 MG TAB.RAP.DR PO SCH (05:46)
--- NOTE | 2016-08-14 06:49 | PDOC TRANSFER SUMMARY ---
General - Admit/Disc Date/PCP Admission Date/Primary Care Provider: 08/11/16 08:45 JEN PADILLAANSLEY Discharge Date: 08/14/16 - Discharge Diagnosis (1) Arthritis of right hip Is this a current diagnosis for this admission?: Yes (2) Acute blood loss anemia Is this a current diagnosis for this admission?: Yes - Additional Information Resuscitation Status: Full Code Discharge Activity: Balance Activity w/Rest, No Driving, No tub bath Home Medications: Digoxin [Lanoxin 0.125 mg Tablet] 0.125 mg PO QAM 09/02/11 Ezetimibe [Zetia 10 mg Tablet] 10 mg PO QAM 09/02/11 Fish Oil 1,000 - 1,200 mg PO BID 09/02/11 Fluticasone/Salmeterol [Advair 100-50 Diskus 14 Dose/Diskus] 1 inh IH BID Meclizine HCl [Antivert 25 mg Tablet] 25 mg PO ASDIR PRN 09/02/11 Metformin HCl [Glucophage 500 mg Tablet] 500 mg PO QAM 09/02/11 Montelukast Sodium [Singulair 10 mg Tablet] 10 mg PO QHS 09/02/11 Rivastigmine [Exelon 9.5 mg/24 Hr Transdermal Patch] 1 each TD DAILY 09/02/11 Furosemide [Lasix] 20 mg PO QAM 11/16/13 Gabapentin [Neurontin] 600 mg PO QAM 11/16/13 Pitavastatin Calcium [Livalo] 1 mg PO QAM 11/16/13 Tiotropium Dyer [Spiriva Handihaler 5 Cap/Kit (18 Mcg/Cap)] 1 cap IH QAM Albuterol Sulfate [Albuterol Sulfate 5mg/1 mL] 5 mg PO Q4 PRN 07/15/16 Bupropion HCl [Wellbutrin Xl 150 mg 24hr Tablet] 1 tab PO DAILY PRN 07/15/16 Calcium Carb/D3/Magnesium/Zinc [Maycol Mag Zinc + D Tablet] 1 tab PO BID 07/15/16 Esomeprazole Magnesium [Nexium] 40 mg PO QAM 07/15/16 Guaifenesin [Mucinex] 600 mg PO BID PRN 07/15/16 Multivitamin [Multivitamins] 2 each PO QAM 07/15/16 Vit C/E/Zn/Coppr/Lutein/Zeaxan [Preservision Areds 2 Softgel] 1 each PO BID Diltiazem HCl [Cardizem Cd 120 mg Capsule] 120 mg PO DAILY #0 cap.sr.24h Oxycodone HCl [Oxy-Ir 5 mg Tablet] 5 mg PO Q6HP PRN #0 tablet 08/14/16 Pnv W-O Ca No5/Fe Fumarate/FA [-U Multiple Vitamin Capsule] 1 cap PO DAILY #0 capsule 08/14/16 Rivaroxaban [Xarelto 15 mg Tablet] 15 mg PO QHS #0 tablet 08/14/16 History of Present Illness Admission Date/PCP: 08/11/16 08:45 JEN SAHU History of Present Illness: KENIA SENIOR is a 86 year old female The patient's an 86-year-old white female who presents with progressive right hip pain and functional disability second asked arthritis. She is admitted for elective right hip arthroplasty. Hospital Course Hospital Course: Patient submitted to the operating room, undergoes undergoes uncomplicated right hip arthroplasty. She's returned to floor in satisfactory condition. She 's seen by physical therapy for weightbearing as tolerated ambulation. She makes slow steady progress this regard. Postoperative day 2 her hematocrit dropped to 23.6%. She received 2 units of packed red blood cells. Hematocrit subsequently 29%. She makes sufficient progress with physical therapy that she' s ready for discharge to [facility] facility on a weightbearing as tolerated basis. Physical Exam Vital Signs: Temp Pulse Resp BP Pulse Ox 36.7 C 67 20 146/54 H 98 08/14/16 04:35 08/14/16 04:35 08/14/16 04:35 08/14/16 04:35 08/14/16 04:35 Intake & Output 08/12/16 08/13/16 08/14/16 06:59 06:59 06:59 Intake Total 5153 4086 2924 Output Total 4450 2200 650 Balance 703 6976 1534 Weight 73.6 kg 73.8 kg 79 kg General appearance: PRESENT: no acute distress Head exam: PRESENT: normocephalic Respiratory exam: PRESENT: unlabored Pulses: PRESENT: +1 pedal pulses bilateral Vascular exam: PRESENT: normal capillary refill GI/Abdominal exam: PRESENT: soft - Right hip. He current dressing clean dry and intact. Leg lengths are equal. Neurovascular examination is intact. Results Laboratory Results: 08/14/16 04:31 08/12/16 07:36 08/11/16 08/13/16 08/14/16 05:50 04:02 04:31 WBC 8.3 12.1 H RBC 2.82 L 3.51 L Hgb 7.8 L 9.7 L Hct 23.6 L 29.5 L MCV 84 84 MCH 27.7 27.6 MCHC 33.2 32.9 RDW 16.4 H 16.2 H Plt Count 223 250 Blood Type O NEGATIVE Antibody Screen NEGATIVE 08/11/16 08/11/16 08/11/16 09:39 09:39 15:46 Creatine Kinase 142 H 226 H CK-MB (CK-2) 2.80 Troponin I < 0.012 08/11/16 08/11/16 08/11/16 15:46 23:48 23:48 Creatine Kinase 246 H CK-MB (CK-2) 3.69 3.24 Troponin I < 0.012 < 0.012 08/12/16 08/12/16 07:36 07:36 Creatine Kinase 219 H CK-MB (CK-2) 2.27 Troponin I < 0.012 Impressions: Chest X-Ray 07/17/16 12:09 IMPRESSION: Airspace opacities noted the left lung base which could represent atelectasis, developing infiltrate, or edema. Overall this appears to have worsened slightly since 05/2016. Stable moderate cardiomegaly. Pelvis X-Ray 08/11/16 08:46 IMPRESSION: Satisfactory postoperative right hip. Status: Imported from PACS Transfer Plan - Disposition Transfer Plan: Patient be transferred to appropriate to [facility] facility for ongoing postoperative rehabilitation. She can return to see Dr. Barbour in the [facility] for surgery in approximately 2 weeks for staple removal. Vero. Dressing can be changed on postop day #7. - Time Spent with Patient Time spent with patient: Less than 30 Minutes Qualifiers PATEINT BEING DISCHARGED WITH ANY OF THE FOLLOWING DIAGNOSIS?: No VTE patient discharged on overlapping Therapy?: Yes
[2016-08-14] MEDS: GABAPENTIN 300 MG CAPSULE PO SCH (09:02)
[2016-08-14] MEDS: FUROSEMIDE 20 MG TABLET PO SCH (09:03)
[2016-08-14] MEDS: OXYCODONE HCL IR 5 MG TABLET PO PRN (09:03)
[2016-08-14] MEDS: METFORMIN HCL 500 MG TABLET PO SCH (09:04)
[2016-08-14] MEDS: EZETIMIBE 10 MG TABLET PO SCH (09:04)
[2016-08-14] MEDS: DIGOXIN 0.125 MG TABLET PO SCH (09:04)
[2016-08-14] MEDS: CALCIUM CARBONATE 250 MG/VITAMIN D3 125 UNIT TABLET PO SCH (09:04)
[2016-08-14] MEDS: DILTIAZEM HCL 120 MG CAP.SR.24H PO SCH (09:06)
[2016-08-14] MEDS: FLUTICASONE/SALMETEROL DISKUS 100-50 MCG/DOSE IH SCH (09:07)
[2016-08-14] MEDS: TIOTROPIUM BROMIDE DPI 5 CAP/KIT (18 MCG/CAP) IH SCH (09:07)
[2016-08-14] MEDS: SENNOSIDES/DOCUSATE 8.6-50 MG 1 EACH TABLET PO SCH (09:07)
[2016-08-14] MEDS: RIVASTIGMINE 9.5 MG/24 HR PATCH.TD24 TD SCH (09:08)
[2016-08-14] MEDS: PRENATAL VITAMIN W-O CA NO5/FE FUMARATE/FA CAPSULE PO SCH (10:58)
[2016-08-14 12:33] VITALS: BP 126/42
--- NOTE | 2016-08-15 15:19 | PDOC PROGRESS REPORT ---
Subjective Progress Note for:: 08/14/16 Subjective:: Patient seems to be doing better with gradual improvement. Patient is status post hip surgery and doing well. Pt is denying any chest arm or neck discomfort. Patient denying any PND, orthopnea. Patient denied any sustained palpitations, dizziness, syncope, near syncope. Patient denying any fever chills. Patient denying any other significant discomfort. Patient is maintaining atrial fibrillation. Heart rate is well controlled Review of systems: Rest review of systems negative. Medications: Medications have been reviewed. 2-D echocardiogram results were reviewed with the patient. Physical Exam Vital Signs: Temp Pulse Resp BP Pulse Ox 98.0 F 84 18 126/42 H 96 08/14/16 12:07 08/14/16 12:07 08/14/16 12:07 08/14/16 12:07 08/14/16 12:07 Intake & Output 08/13/16 08/14/16 08/15/16 06:59 06:59 06:59 Intake Total 4086 3224 Output Total 2200 650 Balance 1886 2574 Weight 73.8 kg 79 kg Exam: GENERAL: well-nourished and in no acute distress. Alert and oriented x3 HEAD: Atraumatic, normocephalic. EYES: Pupils equal round and reactive to light, extraocular movements intact, sclera anicteric, conjunctiva are normal. ENT: TMs normal, nares patent, oropharynx clear without exudates. Moist mucous membranes. No oral ulcerations or bleeding gums noted NECK: supple without lymphadenopathy. Trachea is central. No cervical or axillary lymphadenopathy noted. Carotids are 2+, JVD WNL LUNGS: Respiration seems nonlabored, no significant accessory muscle action noted. Breath sounds clear to auscultation bilaterally and equal. No wheezes rales or rhonchi. No significant dullness noted on percussion. CHEST: Palpation of the chest wall shows no significant chest wall tenderness or abnormalities. 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 ABDOMEN: Soft, no significant tenderness appreciated, normoactive bowel sounds. No guarding, no rebound. No rigidity noted . No masses appreciated. EXTREMITIES: Pedal pulses are 1-2+, no calf tenderness noted. No clubbing or cyanosis.trace to 1+ pedal edema noted NEUROLOGICAL: Focused neurological exam showed no significant neurologic deficit. Normal speech, no focal weakness appreciated. PSYCH: Normal mood, normal affect. Judgment and insight within normal limits. SKIN: No significant ecchymosis, rash, ulcerations or signs of pruritus noted. MUSCULOSKELETAL EXAM: No significant joint swelling noted. A scar of right hip surgery noted Results Laboratory Results: 08/14/16 04:31 08/12/16 07:36 08/11/16 08/14/16 05:50 04:31 WBC 12.1 H RBC 3.51 L Hgb 9.7 L Hct 29.5 L MCV 84 MCH 27.6 MCHC 32.9 RDW 16.2 H Plt Count 250 Blood Type O NEGATIVE Antibody Screen NEGATIVE 08/11/16 08/11/16 08/11/16 09:39 09:39 15:46 Creatine Kinase 142 H 226 H CK-MB (CK-2) 2.80 Troponin I < 0.012 08/11/16 08/11/16 08/11/16 15:46 23:48 23:48 Creatine Kinase 246 H CK-MB (CK-2) 3.69 3.24 Troponin I < 0.012 < 0.012 08/12/16 08/12/16 07:36 07:36 Creatine Kinase 219 H CK-MB (CK-2) 2.27 Troponin I < 0.012 Impressions: Chest X-Ray 07/17/16 12:09 IMPRESSION: Airspace opacities noted the left lung base which could represent atelectasis, developing infiltrate, or edema. Overall this appears to have worsened slightly since 05/2016. Stable moderate cardiomegaly. Pelvis X-Ray 08/11/16 08:46 IMPRESSION: Satisfactory postoperative right hip. Assessment & Plan - Diagnosis (1) Coronary artery disease Qualifiers: Coronary Disease-Associated Artery/Lesion type: [place] artery [place] vs. transplanted heart: [place] heart Associated angina: angina presence unspecified Qualified Code(s): I25.10 - Atherosclerotic heart disease of [place] coronary artery without angina pectoris Is this a current diagnosis for this admission?: Yes (2) Atrial fibrillation Qualifiers: Atrial fibrillation type: chronic Qualified Code(s): I48.2 - Chronic atrial fibrillation Is this a current diagnosis for this admission?: Yes (3) Fracture of right hip Qualifiers: Encounter type: subsequent encounter Is this a current diagnosis for this admission?: Yes (4) Hypertension Qualifiers: Hypertension type: essential hypertension Qualified Code(s): I10 - Essential (primary) hypertension Is this a current diagnosis for this admission?: Yes (5) Diabetes Qualifiers: Diabetes mellitus type: type 2 Diabetes mellitus complication status: with unspecified complications Is this a current diagnosis for this admission?: Yes (6) Dyslipidemia Is this a current diagnosis for this admission?: Yes (7) Abnormal liver function tests Is this a current diagnosis for this admission?: Yes - Notes Notes: Coronary artery disease: Patient has a history of stent placement. Results of previous stress tests reviewed. Patient is symptomatically stable. Continue medical management. 2-D echo results were reviewed with the patient. LVEF is noted to be WNL. Atrial fibrillation: This is chronic. Would recommend chronic anticoagulation. Will be happy to follow patient if needed. Status post right hip arthroplasty: Patient being followed by orthopedic surgeon. Recommend DVT prophylaxis and rehabilitation. Hypertension: Reasonably well controlled. Diabetes: Reasonably well controlled. Dyslipidemia: Continue antilipid therapy. Abnormal liver function test: Need follow-up in the office or by primary care M.D. - Time Time with patient: 15-25 minutes - More than 50% of the time spent coordinating care, discussing management plans with involved caregivers. Management plans discussed with involved personnels.
== END 2016-08-14 13:46 | DRG 470 ==
LOC: UNDOADMIN 05:19 → INOR 05:19 → 3S 10:56
PROVIDERS: ADMIT Orthopaedic Surgery; ATTEND Orthopaedic Surgery
PROC: 0SR902A Replacement of Right Hip Joint with Metal on Polyethylene Synthetic Substitute, Uncemented, Open Approach (ICD-10-PCS; principal; 2016-08-11 07:30)
PROC: 30233N1 Transfusion of Nonautologous Red Blood Cells into Peripheral Vein, Percutaneous Approach (ICD-10-PCS; 2016-08-13)
DX: M16.11 Unilateral primary osteoarthritis, right hip (principal); D62 Acute posthemorrhagic anemia; I25.10 Atherosclerotic heart disease of native coronary artery without angina pectoris; J44.9 Chronic obstructive pulmonary disease, unspecified; I48.2 Chronic atrial fibrillation; K21.9 Gastro-esophageal reflux disease without esophagitis; I08.1 Rheumatic disorders of both mitral and tricuspid valves; I10 Essential (primary) hypertension; F41.9 Anxiety disorder, unspecified; F32.9 Major depressive disorder, single episode, unspecified; I11.9 Hypertensive heart disease without heart failure; E11.40 Type 2 diabetes mellitus with diabetic neuropathy, unspecified; E78.5 Hyperlipidemia, unspecified; I25.2 Old myocardial infarction; Z88.8 Allergy status to other drugs, medicaments and biological substances; Z87.891 Personal history of nicotine dependence; Z95.5 Presence of coronary angioplasty implant and graft; Z86.73 Personal history of transient ischemic attack (TIA), and cerebral infarction without residual deficits; Z98.42 Cataract extraction status, left eye; Z90.49 Acquired absence of other specified parts of digestive tract; Z96.649 Presence of unspecified artificial hip joint; Z90.710 Acquired absence of both cervix and uterus; Z89.429 Acquired absence of other toe(s), unspecified side; Z80.3 Family history of malignant neoplasm of breast; Z82.49 Family history of ischemic heart disease and other diseases of the circulatory system; Z82.3 Family history of stroke
CPT/HCPCS: 01214; 36415; 36430; 71020; 72170; 80048; 80061; 80076; 81001; 82550; 82553; 82962; 83036; 84132; 84484; 85027; 85610; 85730; 86850; 86900; 86901; 86920; 88305; 88311; 93005; 93010; 93306; 94799; C1713; C1780; C9290; G8978-GP; G8979-GP; G8987-GO; G8988-GO; J0690; J1100; J1741; J1815; J1940; J2250; J2270; J2370; J2405; J2704; J3010; J3370; J3490; J7040; J7050; J7060; J7120; P9016; S0028

== ENCOUNTER → 2017-05-11 | Outpatient (CLI) | payer MEDICARE, OTHER ==
--- NOTE | 2017-05-11 17:46 | RADIOLOGY REPORT (SQ) ---
EXAM DESCRIPTION: CT CHEST WITHOUT COMPLETED DATE/TIME: 05/11/2017 4:11 pm REASON FOR STUDY: SOLITART PULMONARY NODULE R91.1 SOLITARY PULMONARY NODULE COMPARISON: None. TECHNIQUE: CT scan performed of the chest without intravenous contrast. Images reviewed with lung, soft tissue and bone windows. Reconstructed coronal and sagittal MPR images reviewed. All images st ored on PACS. All CT scanners at this facility use dose modulation, iterative reconstruction, and/or weight based d osing when appropriate to reduce radiation dose to as low as reasonably achievable (ALARA). [facility]: Dose Right [facility]: CareDose [facility]: Dose Right [facility]: Teradose 4D [facility]: [employer] RADIATION DOSE: Up-to-date CT equipment and radiation dose reduction techniques were employed. CTDIv ol: 4.5 mGy. DLP: 174 mGy-cm. mGy. LIMITATIONS: No technical limitations. FINDINGS: LUNGS AND PLEURA: Stable chronic atelectatic change involving the medial right lower lobe and improved atelectatic change involving the medial left lower lobe. No new airspace disease. No d iscrete pulmonary nodules or mass. No pleural effusion or pneumothorax. . HILAR AND MEDIASTINAL STRUCTURES: No identified masses or abnormal nodes. No obvious aneurysm. 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 No evidence of acute injury. Stable multichamber cardiomegaly in the setting of c oronary artery and valvular calcifications. No pericardial effusion. UPPER ABDOMEN: No significant findings. Limited exam. THYROID AND OTHER SOFT TISSUES: No masses. No adenopathy. BONES: Healing/ subacute right posterior 11th rib fracture. HARDWARE: None in the chest. OTHER: No other significant findings. IMPRESSION: IMPROVED CHRONIC ATELECTATIC CHANGE INVOLVING THE MEDIAL LEFT LOWER LOBE WITH STABLE CHR ONIC ATELECTATIC CHANGE MEDIAL RIGHT LOWER LOBE. NO DISCRETE PULMONARY NODULES/MASSES IDENTIFIED. HEALING/SUBACUTE RIGHT POSTERIOR 11TH RIB FRACTURE NOT PRESENT ON PRIOR CT. CORRELATE WITH INTERVAL TRAUMA. REMAINING FINDINGS STABLE FROM PRIOR CT EXAMINATIONS. TECHNICAL DOCUMENTATION: JOB ID: [id number] Quality ID # [id number]: Final reports with documentation of one or more dose reduction techniques (e.g., Au tomated exposure control, adjustment of the mA and/or kV according to patient size, use of iterative reconstruction technique) 2010 [employer]- All Rights Reserved
== END ==
LOC: RAD 15:48
PROVIDERS: ATTEND Internal Medicine Critical Care Medicine
DX: R91.1 Solitary pulmonary nodule (principal)
CPT/HCPCS: 71250

== ENCOUNTER 2017-08-29 19:25 | Inpatient (IN) | payer MEDICARE, OTHER ==
[2017-08-29] MEDS ORDERED: NORMAL SALINE 1000 ML 1,000 ML IV ONE (19:44)
--- NOTE | 2017-08-29 19:50 | ER Document Report ---
ED Medical Screen (RME) - General Chief Complaint: Nausea/Vomiting Stated Complaint: NAUSEA,VOMITING,DIARRHEA Time Seen by Provider: 08/29/17 19:39 Mode of Arrival: Wheelchair Information source: Patient, Relative Notes: 87-year-old female presents with family with concerns of urinary retention difficulty urinating over the past few days. Patient was seen at urgent care and treated symptomatically with Macrobid which they just picked up, patient has vomited and has multiple diarrhea episodes I have greeted and performed a rapid initial assessment of this patient. A comprehensive ED assessment and evaluation of the patient, analysis of test results and completion of the medical decision making process will be conducted by additional ED providers. PHYSICAL EXAMINATION: GENERAL: elderly female HEAD: Atraumatic, normocephalic. EYES: Pupils equal round extraocular movements intact, conjunctiva are normal. ENT: Nares patent NECK: Normal range of motion LUNGS: No respiratory distress Musculoskeletal: Normal range of motion of upper extremities NEUROLOGICAL: Normal speech, normal gait. PSYCH: Normal mood, normal affect. SKIN: Warm, Dry, normal turgor, no rashes or lesions noted. TRAVEL OUTSIDE OF THE [place] IN LAST 30 DAYS: No - Related Data Allergies/Adverse Reactions: atorvastatin calcium [From Lipitor] Allergy (Intermediate, Verified 08/29/17 19: 26) MUSCLE PAIN Pufpuzt-Syg-Rrk Reductase Inhibitor Allergy (Verified 08/29/17 19:26) MUSCLE PAIN Past Medical History - Past Medical History Cardiac Medical History: Reports: Hx Atrial Fibrillation - since 2001, Hx Coronary Artery Disease, Hx Heart Attack - 1998, Hx Hypercholesterolemia, Hx Hypertension Denies: Hx Congestive Heart Failure, Hx Peripheral Vascular Disease, Hx Pulmonary Embolism, Hx Heart Murmur Pulmonary Medical History: Reports: Hx Asthma, Hx Bronchitis, Hx COPD - Chronic Cough, Hx Pneumonia - many times, Hx Sleep Apnea - CPAP Neurological Medical History: Reports: Hx Cerebrovascular Accident - 2001. Denies: Hx Seizures Endocrine Medical History: Reports: Hx Diabetes Mellitus Type 2. Denies: Hx Graves' Disease, Hx Hyperthyroidism, Hx Hypothyroidism Renal/ Medical History: Denies: Hx End Stage Renal Disease, Hx Kidney Stones, Hx Peritoneal Dialysis Malignancy Medical History: Denies: Hx Leukemia, Hx Lung Cancer GI Medical History: Reports: Hx Gastroesophageal Reflux Disease - takes Nexium. Denies: Hx Crohn's Disease, Hx Hepatitis, Hx Hiatal Hernia, Hx Irritable Bowel , Hx Liver Failure, Hx Pancreatitis, Hx Ulcer Musculoskeltal Medical History: Reports Hx Arthritis, Denies Hx Fibromyalgia, Denies Hx Multiple Sclerosis, Denies Hx Muscular Dystrophy Psychiatric Medical History: Reports: Hx Depression Denies: Hx Bipolar Disorder, Hx Dementia, Hx Post Traumatic Stress Disorder, Hx Schizophrenia Traumatic Medical History: Denies: Hx Fractures Infectious Medical History: Denies: Hx Hepatitis, Hx HIV Past Surgical History: Reports: Hx Appendectomy, Hx Cardiac Catheterization, Hx Cholecystectomy, Hx Hysterectomy, Hx Open Heart Surgery - CARDIAC CATH, Hx Tonsillectomy. Denies: Hx Bowel Surgery, Hx Section, Hx Colostomy, Hx Coronary Artery Bypass Graft, Hx Gastric Bypass Surgery, Hx Herniorrhaphy, Hx Mastectomy, Hx Pacemaker, Hx Tubal Ligation Physical Exam - Vital signs Vitals: Temp Pulse Resp BP Pulse Ox 98.0 F 66 16 187/83 H 89 L 08/29/17 19:32 08/29/17 19:32 08/29/17 19:32 08/29/17 19:32 08/29/17 19:32 Course - Vital Signs Vital signs: Temp Pulse Resp BP Pulse Ox 98.0 F 66 16 187/83 H 93 08/29/17 19:32 08/29/17 19:32 08/29/17 19:32 08/29/17 19:32 08/29/17 19:46
[2017-08-29 20:53] LABS: INTERNATIONAL RATION (INR) 1.09; PROTHROMBIN TIME 14.9 SEC (11.4-15.4)
[2017-08-29 20:55] LABS: VENOUS BLOOD HCO3 31.3 mmol/L (20-32); VENOUS BLOOD PCO2 43.6 mmHg (35-63); VENOUS BLOOD PH 7.47 (7.30-7.42)
[2017-08-29 20:57] LABS: HEMOGLOBIN 11.4 g/dL (12.0-15.5); MEAN CORPUSCULAR HGB CONC 32.6 g/dL (32.0-36.0); MEAN CORPUSCULAR VOLUME 86 fl (80-97); PLATELET COUNT 361 10^3/uL (150-450); RED BLOOD COUNT 4.08 10^6/uL (3.72-5.28); RED CELL DISTRIBUTION WIDTH 17.7 % (11.5-14.0)
--- NOTE | 2017-08-29 20:57 | RADIOLOGY REPORT (SQ) ---
EXAM DESCRIPTION: CHEST SINGLE VIEW COMPLETED DATE/TIME: 08/29/2017 8:38 pm REASON FOR STUDY: copd COMPARISON: Chest CT 05/11/2017 and 07/17/2016 chest radiograph EXAM PARAMETERS: NUMBER OF VIEWS: One view. TECHNIQUE: Single frontal radiographic view of the chest acquired. RADIATION DOSE: NA LIMITATIONS: None. FINDINGS: LUNGS AND PLEURA: Retrocardiac and lingular airspace opacities. Likely small left-sided p leural effusion. No pneumothorax. MEDIASTINUM AND HILAR STRUCTURES: No masses. Contour normal. HEART AND VASCULAR STRUCTURES: Mild cardiomegaly. Normal vasculature. BONES: No acute findings. HARDWARE: None in the chest. OTHER: No other significant finding. IMPRESSION: In the appropriate clinical setting, findings are consistent with multi lobar pneumonia. TECHNICAL DOCUMENTATION: JOB ID: [id number]- All Rights Reserved
[2017-08-29 21:09] LABS: ALANINE AMINOTRANSFERASE 26 U/L (9-52); ALBUMIN 4.1 g/dL (3.5-5.0); ALKALINE PHOSPHATASE 77 U/L (38-126); ANION GAP 12 (5-19); ASPARTATE AMINO TRANSFERASE 18 U/L (14-36); BILIRUBIN,DIRECT 0.3 mg/dL (0.0-0.4); BILIRUBIN,TOTAL 0.8 mg/dL (0.2-1.3); BLOOD UREA NITROGEN 17 mg/dL (7-20); CALCIUM 9.6 mg/dL (8.4-10.2); CARBON DIOXIDE 31 mmol/L (22-30); CHLORIDE 90 mmol/L (98-107); GLUCOSE 125 mg/dL (75-110); POTASSIUM 3.5 mmol/L (3.6-5.0); SODIUM 133.4 mmol/L (137-145); TOTAL PROTEIN 6.4 g/dL (6.3-8.2)
[2017-08-29 21:14] LABS: ABSOLUTE LYMPHOCYTES# (MANUAL) 0.7 10^3/uL (0.5-4.7); ABSOLUTE MONOCYTES # (MANUAL) 0.5 10^3/uL (0.1-1.4); ABSOLUTE NEUTROPHILS# (MANUAL) 11.8 10^3/uL (1.7-8.2); BAND NEUTROPHILS % (MANUAL) 1 % (3-5); BASOPHILS % (MANUAL) 0 % (0-2); EOSINOPHILS % (MANUAL) 0 % (0-6); LYMPHOCYTES % (MANUAL) 5 % (13-45); METAMYELOCYTES % (MANUAL) 2 % (0); MONOCYTES % (MANUAL) 4 % (3-13); SEGMENTED NEUTROPHILS % (MAN) 88 % (42-78); TOTAL CELLS COUNTED 100
[2017-08-29 21:17] LABS: ANISOCYTOSIS 1+; OVALOCYTES SLIGHT; PLATELET COMMENT ADEQUATE; POIKILOCYTOSIS SLIGHT
--- NOTE | 2017-08-29 21:21 | ER Document Report ---
ED General - General Chief Complaint: Nausea/Vomiting Stated Complaint: NAUSEA,VOMITING,DIARRHEA Time Seen by Provider: 08/29/17 19:39 Mode of Arrival: Wheelchair Notes: 87-year-old female patient brought to the emergency department for evaluation of one episode of vomiting. Apparently patient had been complaining of inability to urinate earlier today. Daughter took her to the urgent care where they try to get a urine sample from her. They waited there for 4 hours and she was eventually able to urinate. Found to have an infection. Started on Macrobid. Went to a [employer] event and after eating some [place] clamehnaz chowder had an episode of vomiting. She denies any chest pain. Does have a history of severe lung disease with chronic COPD as well as chronic cough. Wears oxygen. TRAVEL OUTSIDE OF THE [place] IN LAST 30 DAYS: No - HPI Onset: This afternoon Onset/Duration: Gradual Quality of pain: No pain Severity: Mild Pain Level: 0 Associated symptoms: Vomiting Exacerbated by: Denies Relieved by: Denies - Related Data Allergies/Adverse Reactions: atorvastatin calcium [From Lipitor] Allergy (Intermediate, Verified 08/29/17 19: 26) MUSCLE PAIN Rxjsbrl-Iei-Mkm Reductase Inhibitor Allergy (Verified 08/29/17 19:26) MUSCLE PAIN Past Medical History - General Information source: Patient, Relative - Social History Smoking Status: Former Smoker Frequency of alcohol use: None Drug Abuse: None Lives with: Care Home Family History: Reviewed & Not Pertinent Patient has suicidal ideation: No Patient has homicidal ideation: No - Past Medical History Cardiac Medical History: Reports: Hx Atrial Fibrillation - since 2001, Hx Coronary Artery Disease, Hx Heart Attack - 1998, Hx Hypercholesterolemia, Hx Hypertension Denies: Hx Congestive Heart Failure, Hx Peripheral Vascular Disease, Hx Pulmonary Embolism, Hx Heart Murmur Pulmonary Medical History: Reports: Hx Asthma, Hx Bronchitis, Hx COPD - Chronic Cough, Hx Pneumonia - many times, Hx Sleep Apnea - CPAP Neurological Medical History: Reports: Hx Cerebrovascular Accident - 2001. Denies: Hx Seizures Endocrine Medical History: Reports: Hx Diabetes Mellitus Type 2. Denies: Hx Graves' Disease, Hx Hyperthyroidism, Hx Hypothyroidism Renal/ Medical History: Denies: Hx End Stage Renal Disease, Hx Kidney Stones, Hx Peritoneal Dialysis Malignancy Medical History: Denies: Hx Leukemia, Hx Lung Cancer GI Medical History: Reports: Hx Gastroesophageal Reflux Disease - takes Nexium. Denies: Hx Crohn's Disease, Hx Hepatitis, Hx Hiatal Hernia, Hx Irritable Bowel , Hx Liver Failure, Hx Pancreatitis, Hx Ulcer Musculoskeltal Medical History: Reports Hx Arthritis, Denies Hx Fibromyalgia, Denies Hx Multiple Sclerosis, Denies Hx Muscular Dystrophy Psychiatric Medical History: Reports: Hx Depression Denies: Hx Bipolar Disorder, Hx Dementia, Hx Post Traumatic Stress Disorder, Hx Schizophrenia Traumatic Medical History: Denies: Hx Fractures Infectious Medical History: Denies: Hx Hepatitis, Hx HIV Past Surgical History: Reports: Hx Appendectomy, Hx Cardiac Catheterization, Hx Cholecystectomy, Hx Hysterectomy, Hx Open Heart Surgery - CARDIAC CATH, Hx Tonsillectomy. Denies: Hx Bowel Surgery, Hx Section, Hx Colostomy, Hx Coronary Artery Bypass Graft, Hx Gastric Bypass Surgery, Hx Herniorrhaphy, Hx Mastectomy, Hx Pacemaker, Hx Tubal Ligation - Immunizations Hx Pneumococcal Vaccination: 05/03/16 Review of Systems - Review of Systems Constitutional: denies: Fever, Malaise, Weakness EENT: denies: Eye discharge, Blurred vision, Throat pain, Mouth swelling Cardiovascular: denies: Chest pain, Palpitations, Heart racing Respiratory: Cough, Short of breath, Wheezing, Other - Chronic cough, chronic shortness of breath, chronic wheezing Gastrointestinal: Diarrhea, Nausea, Vomiting. denies: Abdominal pain Genitourinary: Burning, Dysuria, Retention Female Genitourinary: denies: Vaginal discharge, Vaginal bleeding, Vaginal odor Musculoskeletal: denies: Back pain, Joint pain, Muscle pain, Muscle stiffness Skin: denies: Dryness, Lesions, Lumps, Rash Hematologic/Lymphatic: denies: Blood clots, Easy bleeding, Easy bruising Neurological/Psychological: Dementia. denies: Seizure, Lost consciousness, Headaches Physical Exam - Vital signs Vitals: Temp Pulse Resp BP Pulse Ox 98.0 F 66 16 187/83 H 89 L 08/29/17 19:32 08/29/17 19:32 08/29/17 19:32 08/29/17 19:32 08/29/17 19:32 Interpretation: Normal - General General appearance: Appears well, Alert - HEENT Head: Normocephalic, Atraumatic Eyes: Normal Pupils: PERRL - Respiratory Respiratory status: No respiratory distress Chest status: Nontender Breath sounds: Nonproductive cough Chest palpation: Normal - Cardiovascular Rhythm: Regular Heart sounds: Normal auscultation Murmur: No - Abdominal Inspection: Normal Distension: No distension Bowel sounds: Normal Tenderness: Nontender Organomegaly: No organomegaly - Back Back: Normal, Nontender - Extremities General upper extremity: Normal inspection, Nontender, Normal color, Normal ROM , Normal temperature General lower extremity: Normal inspection, Nontender, Edema, Normal color, Normal ROM, Normal temperature, Normal weight bearing. No: Nigel's sign - Neurological Neuro grossly intact: Yes Cognition: Normal Orientation: AAOx4 Hodgen Coma Scale Eye Opening: Spontaneous Mindy Coma Scale Verbal: Oriented Hodgen Coma Scale Motor: Obeys Commands Hodgen Coma Scale Total: 15 Speech: Normal Motor strength normal: LUE, RUE, LLE, RLE Sensory: Normal - Psychological Associated symptoms: Normal affect, Normal mood - Skin Skin Temperature: Warm Skin Moisture: Dry Skin Color: Normal Course - Re-evaluation Re-evalutation: 08/29/17 21:20 This is a pleasant 87-year-old female in no acute distress at this time. Getting basic labs and workup at this time. Blood pressure is actually high not low. Is not tachycardic. Does not have a fever. Vazquez catheter was placed. Will send urine. 08/29/17 22:07 Laboratory 08/29/17 08/29/17 08/29/17 19:50 20:00 20:30 WBC 13.0 H RBC 4.08 Hgb 11.4 L Hct 35.0 L MCV 86 MCH 28.0 MCHC 32.6 RDW 17.7 H Plt Count 361 Total Counted 100 Seg Neutrophils % Not Reportable Seg Neuts % (Manual) 88 H Band Neutrophils % 1 L Lymphocytes % Not Reportable Lymphocytes % (Manual) 5 L Monocytes % Not Reportable Monocytes % (Manual) 4 Eosinophils % Not Reportable Eosinophils % (Manual) 0 Basophils % Not Reportable Basophils % (Manual) 0 Metamyelocytes % 2 H Absolute Neutrophils Not Reportable Abs Neuts (Manual) 11.8 H Absolute Lymphocytes Not Reportable Abs Lymphs (Manual) 0.7 Absolute Monocytes Not Reportable Abs Monocytes (Manual) 0.5 Absolute Eosinophils Not Reportable Absolute Eos (Manual) 0.0 Absolute Basophils Not Reportable Abs Basophils (Manual) 0.0 Platelet Comment ADEQUATE Poikilocytosis SLIGHT Anisocytosis 1+ Ovalocytes SLIGHT PT INR VBG pH VBG pCO2 VBG HCO3 VBG Base Excess Sodium Potassium Chloride Carbon Dioxide Anion Gap BUN Creatinine Est GFR ( Amer) Est GFR (Non-Af Amer) Glucose POC Glucose 124 H Lactic Acid Calcium Total Bilirubin Direct Bilirubin Neonat Total Bilirubin Neonat Direct Bilirubin Neonat Indirect Bili AST ALT Alkaline Phosphatase Troponin I Total Protein Albumin Urine Color YELLOW Urine Appearance CLEAR Urine pH 6.0 Ur Specific [place] 1.016 Urine Protein >=500 H Urine Glucose (UA) NEGATIVE Urine Ketones TRACE H Urine Blood NEGATIVE Urine Nitrite NEGATIVE Urine Bilirubin NEGATIVE Urine Urobilinogen 4.0 H Ur Leukocyte Esterase NEGATIVE Urine WBC (Auto) 1 Urine RBC (Auto) 2 Urine Mucus (Auto) OCC Urine Ascorbic Acid 40 H 08/29/17 08/29/17 08/29/17 20:30 20:30 20:30 WBC RBC Hgb Hct MCV MCH MCHC RDW Plt Count Total Counted Seg Neutrophils % Seg Neuts % (Manual) Band Neutrophils % Lymphocytes % Lymphocytes % (Manual) Monocytes % Monocytes % (Manual) Eosinophils % Eosinophils % (Manual) Basophils % Basophils % (Manual) Metamyelocytes % Absolute Neutrophils Abs Neuts (Manual) Absolute Lymphocytes Abs Lymphs (Manual) Absolute Monocytes Abs Monocytes (Manual) Absolute Eosinophils Absolute Eos (Manual) Absolute Basophils Abs Basophils (Manual) Platelet Comment Poikilocytosis Anisocytosis Ovalocytes PT 14.9 INR 1.09 VBG pH 7.47 H VBG pCO2 43.6 VBG HCO3 31.3 VBG Base Excess 7.0 Sodium 133.4 L Potassium 3.5 L Chloride 90 L Carbon Dioxide 31 H Anion Gap 12 BUN 17 Creatinine 0.55 Est GFR ( Amer) > 60 Est GFR (Non-Af Amer) > 60 Glucose 125 H POC Glucose Lactic Acid Calcium 9.6 Total Bilirubin 0.8 Direct Bilirubin 0.3 Neonat Total Bilirubin Not Reportable Neonat Direct Bilirubin Not Reportable Neonat Indirect Bili Not Reportable AST 18 ALT 26 Alkaline Phosphatase 77 Troponin I Total Protein 6.4 Albumin 4.1 Urine Color Urine Appearance Urine pH Ur Specific [place] Urine Protein Urine Glucose (UA) Urine Ketones Urine Blood Urine Nitrite Urine Bilirubin Urine Urobilinogen Ur Leukocyte Esterase Urine WBC (Auto) Urine RBC (Auto) Urine Mucus (Auto) Urine Ascorbic Acid 08/29/17 08/29/17 20:30 21:10 WBC RBC Hgb Hct MCV MCH MCHC RDW Plt Count Total Counted Seg Neutrophils % Seg Neuts % (Manual) Band Neutrophils % Lymphocytes % Lymphocytes % (Manual) Monocytes % Monocytes % (Manual) Eosinophils % Eosinophils % (Manual) Basophils % Basophils % (Manual) Metamyelocytes % Absolute Neutrophils Abs Neuts (Manual) Absolute Lymphocytes Abs Lymphs (Manual) Absolute Monocytes Abs Monocytes (Manual) Absolute Eosinophils Absolute Eos (Manual) Absolute Basophils Abs Basophils (Manual) Platelet Comment Poikilocytosis Anisocytosis Ovalocytes PT INR VBG pH VBG pCO2 VBG HCO3 VBG Base Excess Sodium Potassium Chloride Carbon Dioxide Anion Gap BUN Creatinine Est GFR ( Amer) Est GFR (Non-Af Amer) Glucose POC Glucose Lactic Acid 0.8 Calcium Total Bilirubin Direct Bilirubin Neonat Total Bilirubin Neonat Direct Bilirubin Neonat Indirect Bili AST ALT Alkaline Phosphatase Troponin I 0.029 Total Protein Albumin Urine Color Urine Appearance Urine pH Ur Specific [place] Urine Protein Urine Glucose (UA) Urine Ketones Urine Blood Urine Nitrite Urine Bilirubin Urine Urobilinogen Ur Leukocyte Esterase Urine WBC (Auto) Urine RBC (Auto) Urine Mucus (Auto) Urine Ascorbic Acid Chest X-Ray 08/29/17 19:44 IMPRESSION: In the appropriate clinical setting, findings are consistent with multi lobar pneumonia. Chest x-ray consistent with pneumonia. Oxygen saturations are lower than her normal. Currently at 86%. Not septic at this time. Afebrile. Does have an elevated blood cell count. At this time patient is to be admitted for further observation and treatment. Consulted hospitalist. Dr. Rdz agrees to the admission at this time. - Vital Signs Vital signs: Temp Pulse Resp BP Pulse Ox 98.0 F 66 16 187/83 H 93 08/29/17 19:32 08/29/17 19:32 08/29/17 19:32 08/29/17 19:32 08/29/17 19:46 - Laboratory Result Diagrams: 08/29/17 20:30 08/29/17 20:30 Laboratory results interpreted by me: 08/29/17 08/29/17 08/29/17 19:50 20:00 20:30 WBC 13.0 H Hgb 11.4 L Hct 35.0 L RDW 17.7 H Seg Neuts % (Manual) 88 H Band Neutrophils % 1 L Lymphocytes % (Manual) 5 L Metamyelocytes % 2 H Abs Neuts (Manual) 11.8 H VBG pH Sodium Potassium Chloride Carbon Dioxide Glucose POC Glucose 124 H Urine Protein >=500 H Urine Ketones TRACE H Urine Urobilinogen 4.0 H Urine Ascorbic Acid 40 H 08/29/17 08/29/17 20:30 20:30 WBC Hgb Hct RDW Seg Neuts % (Manual) Band Neutrophils % Lymphocytes % (Manual) Metamyelocytes % Abs Neuts (Manual) VBG pH 7.47 H Sodium 133.4 L Potassium 3.5 L Chloride 90 L Carbon Dioxide 31 H Glucose 125 H POC Glucose Urine Protein Urine Ketones Urine Urobilinogen Urine Ascorbic Acid - EKG Interpretation by Nv EKG shows normal: Outlook, Intervals, QRS Complexes, ST-T Waves Rhythm: A.Fib Discharge - Discharge Clinical Impression: Left upper lobe pneumonia Qualifiers: Pneumonia type: due to unspecified organism Qualified Code(s): J18.1 - Lobar pneumonia, unspecified organism Condition: Good Disposition: ADMITTED INPATIENT Admitting Provider: [facility] Unit Admitted: Medical Floor Referrals: BRODY MARTINEZ MD [Primary Care Provider] - Follow up as needed
[2017-08-29 21:35] LABS: APPEARANCE,URINE CLEAR; BILIRUBIN,URINE NEGATIVE (NEGATIVE); COLOR,URINE YELLOW; GLUCOSE, URINE NEGATIVE (NEGATIVE); KETONES,URINE TRACE mg/dL (NEGATIVE); LEUKOCYTE ESTERASE,URINE NEGATIVE (NEGATIVE); NITRITE,URINE NEGATIVE (NEGATIVE); PROTEIN,URINE >=500 mg/dL (NEGATIVE); URINE SPECIFIC GRAVITY 1.016
[2017-08-29] MEDS ORDERED: LEVOFLOXACIN 750 MG/D5W RTU 750 MG/150 ML RTUPB IV ONE (22:06)
[2017-08-29] MEDS ORDERED: ALBUTEROL SULFATE 0.083% NEB 2.5 MG/3 ML AMPUL NEB ONE (22:07)
[2017-08-29] MEDS ORDERED: ACETAMINOPHEN 325 MG TABLET PO ONE (22:14)
[2017-08-29] MEDS ORDERED: ALBUTEROL SULFATE 0.083% NEB 2.5 MG/3 ML AMPUL NEB PRN (23:14)
[2017-08-29] MEDS ORDERED: GUAIFENESIN SYRP 200 MG/10 ML UDC PO PRN (23:14)
[2017-08-29] MEDS ORDERED: GLUCAGON,HUMAN RECOMB 1 MG INJ IM PRN (23:31)
[2017-08-29] MEDS ORDERED: DEXTROSE 50%-WATER 25 GM/50 ML DISP.SYRIN IV PRN ×2 (23:31)
[2017-08-29] MEDS ORDERED: DEXTROSE 40% GEL 15 GM TUBE PO PRN ×2 (23:31)
--- NOTE | 2017-08-29 23:57 | PDOC H&P ---
History of Present Illness Admission Date/PCP: BRODY MARTINEZ Patient complains of: Inability to urinate and history of mycobacterial lung infection History of Present Illness: KENIA SENIOR is a 87 year old female who recently entered an assisted living facility. Last night she developed urinary incontinence and so she asked her daughter to take her to urgent care. At urgent care she was unable to urinate and so left to go to dinner with her daughter. At dinner she developed vomiting followed by shortness of breath she was brought to the emergency room and was found to be hypoxemic. Chest x-ray showed a new infiltrate in the left lower lobe. Patient was started on antibiotics and supplemental oxygen. A Vazquez was inserted for urinary retention. Patient is admitted for further care. Home medications include the following EXELON METFORMIN PRESERVISION LUTEIN PROZAC ZETIA VIT B12 DILTIAZEM LASIX NITRO PROTONIX DIGOXIN ELIQUIS GABAPENTIN Past Medical History Cardiac Medical History: Reports: Atrial Fibrillation - since 2001, Coronary Artery Disease, Myocardial Infarction - 1998, Hyperlipidema, Hypertension Denies: Congestive Heart Failure, Peripheral Vascular Disease, Pulmonary Embolism, Heart Murmur Pulmonary Medical History: Reports: Asthma, Bronchitis, Chronic Obstructive Pulmonary Disease (COPD) - Chronic Cough, Pneumonia - many times, Sleep Apnea - CPAP Neurological Medical History: Denies: Seizures Endocrine Medical History: Reports: Diabetes Mellitus Type 2 Denies: Hyperthyroidism, Hypothyroidism Renal/ Medical History: Denies: End Stage Renal Disease Malignancy Medical History: Denies: Leukemia, Lung Cancer GI Medical History: Reports: Gastroesophageal Reflux Disease - takes Nexium Denies: Crohn's Disease, Hepatitis, Hiatal Hernia Musculoskeltal Medical History: Reports: Arthritis Denies: Fibromyalgia Psychiatric Medical History: Reports: Depression Denies: Bipolar Disorder, Dementia, Post Traumatic Stress Disorder Hematology: Reports: Anemia - blood transfusion with previous hip replacement Denies: Hemophilia, Sickle Cell Disease Infectious Medical History: Denies: HIV Past Surgical History Past Surgical History: Reports: 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, Appendectomy, Cardiac Catheterization, Cholecystectomy, Hysterectomy, Tonsillectomy Denies: Section, Colostomy, Coronary Artery Bypass Graft, Gastric Bypass Surgery, Herniorrhaphy, Mastectomy, Pacemaker, Tubal Ligation Social History Information Source: Patient, Relative - Daughter Lives with: [facility] Smoking Status: Former Smoker Frequency of Alcohol Use: None Hx Recreational Drug Use: No Drugs: None Hx Prescription Drug Abuse: No - Advance Directive Resuscitation Status: Full Code Surrogate healthcare decision maker:: Patient does have a living will and does not wish to have prolonging artificial ventilation and/or nutrition Family History Family History: Reviewed & Not Pertinent Parental Family History Reviewed: Yes Children Family History Reviewed: Yes Sibling(s) Family History Reviewed.: Yes Medication/Allergy Allergies/Adverse Reactions: atorvastatin calcium [From Lipitor] Allergy (Intermediate, Verified 08/29/17 19: 26) MUSCLE PAIN Xmqytae-Hub-Vpr Reductase Inhibitor Allergy (Verified 08/29/17 19:26) MUSCLE PAIN Review of Systems Constitutional: ABSENT: chills, fever(s), headache(s), weight gain, weight loss Eyes: ABSENT: visual disturbances Ears: PRESENT: hearing changes Cardiovascular: ABSENT: chest pain, dyspnea on exertion, edema, orthropnea, palpitations Respiratory: PRESENT: cough Gastrointestinal: ABSENT: abdominal pain, constipation, diarrhea, hematemesis, hematochezia, nausea, vomiting Genitourinary: PRESENT: difficulty urinating Musculoskeletal: ABSENT: joint swelling Integumentary: ABSENT: rash, wounds Neurological: ABSENT: abnormal gait, abnormal speech, confusion, dizziness, focal weakness, syncope Psychiatric: ABSENT: anxiety, depression, homidical ideation, suicidal ideation Endocrine: ABSENT: cold intolerance, heat intolerance, polydipsia, polyuria Hematologic/Lymphatic: ABSENT: easy bleeding, easy bruising Physical Exam Vital Signs: Temp Pulse Resp BP Pulse Ox 98.0 F 66 25 H 163/77 H 97 08/29/17 19:32 08/29/17 19:32 08/29/17 23:14 08/29/17 21:02 08/29/17 23:14 Intake & Output 08/28/17 08/29/17 08/30/17 06:59 06:59 06:59 Weight 68.039 kg General appearance: PRESENT: no acute distress, well-developed, well-nourished Head exam: PRESENT: atraumatic, normocephalic Eye exam: PRESENT: conjunctiva pink, EOMI, PERRLA. ABSENT: scleral icterus Ear exam: PRESENT: normal external ear exam, other - Hard of hearing Mouth exam: PRESENT: moist, tongue midline Neck exam: ABSENT: carotid bruit, JVD, lymphadenopathy, thyromegaly Respiratory exam: PRESENT: clear to auscultation reji. ABSENT: rales, rhonchi, wheezes Cardiovascular exam: PRESENT: irregular rhythm. ABSENT: diastolic murmur, rubs , systolic murmur GI/Abdominal exam: PRESENT: normal bowel sounds, soft. ABSENT: distended, guarding, mass, organolmegaly, rebound, tenderness Rectal exam: PRESENT: deferred Gentrourinary exam: PRESENT: indwelling catheter Extremities exam: PRESENT: full ROM, pedal edema. ABSENT: calf tenderness, clubbing Neurological exam: PRESENT: alert, awake, oriented to person, oriented to place , oriented to time, oriented to situation, CN II-XII grossly intact. ABSENT: motor sensory deficit Psychiatric exam: PRESENT: appropriate affect, normal mood. ABSENT: homicidal ideation, suicidal ideation Skin exam: PRESENT: dry, intact, warm. ABSENT: cyanosis, rash Results Laboratory Results: 08/29/17 20:30 08/29/17 20:30 08/29/17 08/29/17 08/29/17 19:50 20:30 20:30 WBC 13.0 H RBC 4.08 Hgb 11.4 L Hct 35.0 L MCV 86 MCH 28.0 MCHC 32.6 RDW 17.7 H Plt Count 361 Seg Neutrophils % Not Reportable Lymphocytes % Not Reportable Monocytes % Not Reportable Eosinophils % Not Reportable Basophils % Not Reportable Absolute Neutrophils Not Reportable Absolute Lymphocytes Not Reportable Absolute Monocytes Not Reportable Absolute Eosinophils Not Reportable Absolute Basophils Not Reportable VBG pH VBG pCO2 VBG HCO3 VBG Base Excess Sodium 133.4 L Potassium 3.5 L Chloride 90 L Carbon Dioxide 31 H Anion Gap 12 BUN 17 Creatinine 0.55 Est GFR ( Amer) > 60 Est GFR (Non-Af Amer) > 60 Glucose 125 H Lactic Acid Calcium 9.6 Total Bilirubin 0.8 AST 18 ALT 26 Alkaline Phosphatase 77 Total Protein 6.4 Albumin 4.1 Urine Color YELLOW Urine Appearance CLEAR Urine pH 6.0 Ur Specific [place] 1.016 Urine Protein >=500 H Urine Glucose (UA) NEGATIVE Urine Ketones TRACE H Urine Blood NEGATIVE Urine Nitrite NEGATIVE Ur Leukocyte Esterase NEGATIVE Urine WBC (Auto) 1 Urine RBC (Auto) 2 08/29/17 08/29/17 20:30 21:10 WBC RBC Hgb Hct MCV MCH MCHC RDW Plt Count Seg Neutrophils % Lymphocytes % Monocytes % Eosinophils % Basophils % Absolute Neutrophils Absolute Lymphocytes Absolute Monocytes Absolute Eosinophils Absolute Basophils VBG pH 7.47 H VBG pCO2 43.6 VBG HCO3 31.3 VBG Base Excess 7.0 Sodium Potassium Chloride Carbon Dioxide Anion Gap BUN Creatinine Est GFR ( Amer) Est GFR (Non-Af Amer) Glucose Lactic Acid 0.8 Calcium Total Bilirubin AST ALT Alkaline Phosphatase Total Protein Albumin Urine Color Urine Appearance Urine pH Ur Specific [place] Urine Protein Urine Glucose (UA) Urine Ketones Urine Blood Urine Nitrite Ur Leukocyte Esterase Urine WBC (Auto) Urine RBC (Auto) 08/29/17 20:30 Troponin I 0.029 Impressions: Chest X-Ray 08/29/17 19:44 IMPRESSION: In the appropriate clinical setting, findings are consistent with multi lobar pneumonia. Assessment & Plan - Diagnosis (1) Aspiration into lower respiratory tract Qualifiers: Encounter type: initial encounter Qualified Code(s): T17.800A - Unspecified foreign body in other parts of respiratory tract causing asphyxiation, initial encounter Is this a current diagnosis for this admission?: Yes (2) Urinary retention Is this a current diagnosis for this admission?: Yes (3) Atrial fibrillation Qualifiers: Atrial fibrillation type: chronic Qualified Code(s): I48.2 - Chronic atrial fibrillation Is this a current diagnosis for this admission?: Yes (4) Hypertension Qualifiers: Hypertension type: essential hypertension Qualified Code(s): I10 - Essential (primary) hypertension Is this a current diagnosis for this admission?: Yes (5) Diabetes Qualifiers: Diabetes mellitus type: type 2 Diabetes mellitus complication status: with unspecified complications Diabetes mellitus senior care insulin use: without termite helper use Qualified Code(s): E11.8 - Type 2 diabetes mellitus with unspecified complications Is this a current diagnosis for this admission?: Yes (6) COPD (chronic obstructive pulmonary disease) Qualifiers: COPD type: unspecified COPD Qualified Code(s): J44.9 - Chronic obstructive pulmonary disease, unspecified Is this a current diagnosis for this admission?: Yes (7) FARIHA on CPAP Is this a current diagnosis for this admission?: Yes - Plan Summary Plan Summary: It would appear that the patient aspirated during her vomiting and has aspiration pneumonia. She also has a history of mycobacterial infection and lung scarring. Her diabetes appears controlled. I am unsure as to the cause of her acute urinary retention. As we do not have a urologist available currently as she may have to be discharged with the Vazquez catheter. She will be started on bronchodilator therapy as well as antibiotics. Her home medications will be continued once they are compiled. She will have sliding scale insulin. As she is currently on Eliquis she will not require DVT prophylaxis.
[2017-08-30] MEDS ORDERED: DILTIAZEM HCL 120 MG CAP.SR.24H PO ONE
[2017-08-30] MEDS: IPRATROPIUM/ALBUTEROL 0.5-2.5 MG/3 ML AMPUL NEB SCH ×3 (01:17→16:35)
[2017-08-30 07:51] LABS: ANION GAP 11 (5-19); BLOOD UREA NITROGEN 14 mg/dL (7-20); CALCIUM 9.2 mg/dL (8.4-10.2); CARBON DIOXIDE 29 mmol/L (22-30); CHLORIDE 101 mmol/L (98-107); GLUCOSE 87 mg/dL (75-110); SODIUM 141.2 mmol/L (137-145)
[2017-08-30 08:07] LABS: HEMATOCRIT 32.1 % (36.0-47.0); HEMOGLOBIN 10.9 g/dL (12.0-15.5); MEAN CORPUSCULAR HEMOGLOBIN 28.8 pg (27.0-33.4); MEAN CORPUSCULAR VOLUME 85 fl (80-97); PLATELET COUNT 306 10^3/uL (150-450); RED BLOOD COUNT 3.78 10^6/uL (3.72-5.28); RED CELL DISTRIBUTION WIDTH 17.1 % (11.5-14.0); WHITE BLOOD COUNT 8.6 10^3/uL (4.0-10.5)
[2017-08-30] MEDS ORDERED: ACETAMINOPHEN 325 MG TABLET PO PRN (08:25)
[2017-08-30] MEDS ORDERED: PYRIDOXINE PO PRN (08:25)
[2017-08-30] MEDS ORDERED: IBUPROFEN 800 MG TABLET PO PRN ×2 (08:25→10:00)
[2017-08-30] MEDS ORDERED: MELATONIN PO PRN (08:25)
[2017-08-30 08:43] LABS: ABSOLUTE LYMPHOCYTES# (MANUAL) 0.3 10^3/uL (0.5-4.7); ABSOLUTE MONOCYTES # (MANUAL) 0.5 10^3/uL (0.1-1.4); ABSOLUTE NEUTROPHILS# (MANUAL) 7.7 10^3/uL (1.7-8.2); BAND NEUTROPHILS % (MANUAL) 3 % (3-5); BASOPHILS % (MANUAL) 0 % (0-2); EOSINOPHILS % (MANUAL) 1 % (0-6); LYMPHOCYTES % (MANUAL) 3 % (13-45); MONOCYTES % (MANUAL) 6 % (3-13); SEGMENTED NEUTROPHILS % (MAN) 87 % (42-78); TOTAL CELLS COUNTED 100
[2017-08-30 08:45] LABS: ANISOCYTOSIS 1+; OVALOCYTES 2+; PLATELET COMMENT ADEQUATE; POLYCHROMASIA SLIGHT; TOXIC GRANULATION 1+
[2017-08-30] MEDS: FAMOTIDINE 20 MG TABLET PO SCH ×2 (09:24→21:33)
[2017-08-30] MEDS: ACETAMINOPHEN 325 MG TABLET PO PRN ×2 (09:55→20:06)
[2017-08-30] MEDS ORDERED: RIVASTIGMINE 9.5 MG/24 HR PATCH.TD24 TOP SCH (10:00)
[2017-08-30] MEDS ORDERED: (PENDING PHARMACY ID) (Lutein [Lutein] 20 MG) PO SCH (10:00)
[2017-08-30] MEDS ORDERED: (PENDING PHARMACY ID) (Diltiazem Hcl [Cardizem] 120 MG) PO SCH (10:00)
[2017-08-30] MEDS ORDERED: (PENDING PHARMACY ID) (Cyanocobalamin (Vitamin B-12) [Vitamin B12] 1,000 MCG) PO SCH (10:00)
[2017-08-30] MEDS ORDERED: APIXABAN 5 MG TABLET PO SCH (10:00)
[2017-08-30] MEDS: DIGOXIN 0.125 MG TABLET PO SCH (10:36)
[2017-08-30] MEDS: FLUOXETINE HCL 20 MG CAPSULE PO SCH (10:36)
[2017-08-30] MEDS: EZETIMIBE 10 MG TABLET PO SCH (10:37)
[2017-08-30] MEDS: CYCLOSPORINE 0.05% OPH EMULSIO 0.4 ML DROPERETTE OU SCH ×2 (10:37→17:01)
[2017-08-30] MEDS: POTASSIUM CHLORIDE 20 MEQ/15 ML UDCUP PO SCH ×2 (10:37→17:01)
[2017-08-30] MEDS: APIXABAN 5 MG TABLET PO SCH ×2 (10:42→17:01)
--- NOTE | 2017-08-30 11:55 | EKG REPORT ---
SEVERITY:- ABNORMAL ECG - ATRIAL FIBRILLATION LOW VOLTAGE IN FRONTAL LEADS LVH WITH SECONDARY REPOLARIZATION ABNORMALITY ANTERIOR Q WAVES, POSSIBLY DUE TO LVH ST DEPRESSION, CONSIDER ISCHEMIA, ANT-LAT LDS : Confirmed by: Tonya Burnett MD 30-Aug-2017 11:54:34
[2017-08-30] MEDS: MAGNESIUM SULFATE/D5W 1 GM/100 ML RTUPB IV SCH ×2 (13:40→14:44)
--- NOTE | 2017-08-30 15:41 | PDOC PROGRESS REPORT ---
Subjective Progress Note for:: 08/30/17 Subjective:: Patient is a 87-year-old female who developed urinary retention and is now found to have pneumonia. Patient currently doing well today. Patient is asking when she will be able to go home. Patient is eating okay. Patient daughter is at bedside. Explained to daughter that I will start patient on Flomax temporarily while the Vazquez is in place. And that patient should continue on the Flomax a couple days after his removed. Explained that I do not plan on keeping patient on the medication as this can cause orthostatic hypotension which puts the patient at risk for falling. Reason For Visit: PNEUMONIA Physical Exam Vital Signs: Temp Pulse Resp BP Pulse Ox 98.2 F 72 18 148/71 H 96 08/30/17 12:17 08/30/17 12:17 08/30/17 12:17 08/30/17 12:17 08/30/17 13:03 Pulse Oximeter Continuous Start: 08/29/17 23: 14 Freq: RTQ4 Status: Active Document 08/30/17 13:[address] [facility] (Rec: 08/30/17 13:[address] [facility] [email or web address]) Pulse Oximetry Assessment Oxygen Saturation (92-100) 96 Oxygen Flow Rate (L/min) 2 Oxygen Delivery Method Nasal Cannula Fraction of Inspired Oxygen (FIO2) 28 Equipment Usage Equipment in Use Continuous SpO2 Machine # N 9 Intake & Output 08/29/17 08/30/17 08/31/17 06:59 06:59 06:59 Output Total 1700 650 Balance -1700 -650 General appearance: PRESENT: no acute distress, well-developed, well-nourished Head exam: PRESENT: normocephalic Eye exam: PRESENT: conjunctiva pink, EOMI. ABSENT: scleral icterus Mouth exam: PRESENT: moist Neck exam: ABSENT: carotid bruit, JVD, lymphadenopathy, thyromegaly Respiratory exam: PRESENT: clear to auscultation reji. ABSENT: rales, rhonchi, wheezes Cardiovascular exam: PRESENT: RRR. ABSENT: diastolic murmur, rubs, systolic murmur Pulses: PRESENT: normal dorsalis pedis pul Vascular exam: PRESENT: normal capillary refill GI/Abdominal exam: PRESENT: normal bowel sounds, soft. ABSENT: distended, guarding, mass, organolmegaly, rebound, tenderness Rectal exam: PRESENT: deferred Extremities exam: PRESENT: full ROM. ABSENT: calf tenderness, clubbing, pedal edema Neurological exam: PRESENT: alert, awake, oriented to person, oriented to place , oriented to time, oriented to situation, CN II-XII grossly intact. ABSENT: motor sensory deficit Psychiatric exam: PRESENT: appropriate affect, normal mood. ABSENT: homicidal ideation, suicidal ideation Skin exam: PRESENT: dry, intact, pallor, warm, other - Bruising on the inner left leg.. ABSENT: cyanosis, rash Results Laboratory Results: 08/30/17 06:43 08/30/17 06:43 08/30/17 08/30/17 08/30/17 06:43 06:43 06:43 WBC 8.6 RBC 3.78 Hgb 10.9 L Hct 32.1 L MCV 85 MCH 28.8 MCHC 34.0 RDW 17.1 H Plt Count 306 Seg Neutrophils % Not Reportable Lymphocytes % Not Reportable Monocytes % Not Reportable Eosinophils % Not Reportable Basophils % Not Reportable Absolute Neutrophils Not Reportable Absolute Lymphocytes Not Reportable Absolute Monocytes Not Reportable Absolute Eosinophils Not Reportable Absolute Basophils Not Reportable Sodium 141.2 Potassium 3.0 L* Chloride 101 Carbon Dioxide 29 Anion Gap 11 BUN 14 Creatinine 0.53 Est GFR ( Amer) > 60 Est GFR (Non-Af Amer) > 60 Glucose 87 Calcium 9.2 Magnesium 1.3 L Impressions: Chest X-Ray 08/29/17 19:44 IMPRESSION: In the appropriate clinical setting, findings are consistent with multi lobar pneumonia. Assessment & Plan - Diagnosis (1) Pneumonia Is this a current diagnosis for this admission?: Yes Plan: With a multilobar pneumonia. Patient is currently on Levaquin. Patient white count improved from 13,000 to 8000. Will continue to monitor. (2) Hypokalemia Plan: Patient given 20mEq of potassium x 2. Will follow up. (3) Hypomagnesemia Plan: Will give IV magnesium and start on oral replacement. (4) COPD (chronic obstructive pulmonary disease) Qualifiers: COPD type: unspecified COPD Qualified Code(s): J44.9 - Chronic obstructive pulmonary disease, unspecified Is this a current diagnosis for this admission?: Yes Plan: Patient with mild wheezing but without respiratory distress. Will continue duonebs and monitor. (5) FARIHA on CPAP Is this a current diagnosis for this admission?: Yes Plan: Continue bipap QHS. (6) Urinary retention Is this a current diagnosis for this admission?: Yes Plan: Patient states that this is a new problem. Patient has a Vazquez in place. Will start patient on Flomax. Patient should continue on this medication a couple days after having Vazquez removed. Encourage patient to ambulate with assistance. (7) Atrial fibrillation Qualifiers: Atrial fibrillation type: chronic Qualified Code(s): I48.2 - Chronic atrial fibrillation Is this a current diagnosis for this admission?: Yes Plan: Continue patient on diltiazem and digoxin and Eliquis. Will place patient potassium and magnesium and monitor. (8) Diabetes Qualifiers: Diabetes mellitus type: type 2 Diabetes mellitus complication status: with unspecified complications Diabetes mellitus chcf insulin use: without chcf use Qualified Code(s): E11.8 - Type 2 diabetes mellitus with unspecified complications Is this a current diagnosis for this admission?: Yes Plan: Continue SSI and monitor. - Time Time Spent with patient: 15-24 minutes Anticipated discharge: SNF Within: within 72 hours - Inpatient Certification Medical Necessity: Need for IV Antibiotics
[2017-08-30] MEDS ORDERED: TAMSULOSIN HCL 0.4 MG CAP.SR.24H PO ONE (16:00)
[2017-08-30] MEDS: INSULIN LISPRO 100 UNIT/ML 3 ML VIAL SUBCUT PRN (17:06)
[2017-08-30] MEDS: GABAPENTIN 300 MG CAPSULE PO SCH (21:33)
[2017-08-30] MEDS ORDERED: LEVOFLOXACIN 750 MG TABLET PO SCH (22:00)
[2017-08-30] MEDS ORDERED: (PENDING PHARMACY ID) (Melatonin [Melatonin] 5 MG) PO SCH (22:00)
[2017-08-31] MEDS: IPRATROPIUM/ALBUTEROL 0.5-2.5 MG/3 ML AMPUL NEB SCH ×4 (00:42→23:46)
[2017-08-31 07:56] LABS: ABSOLUTE EOSINOPHILS # (AUTO) 0.1 10^3/uL (0.0-0.6); ABSOLUTE LYMPHOCYTES (AUTO) 0.4 10^3/uL (0.5-4.7); ABSOLUTE MONOCYTES (AUTO) 0.4 10^3/uL (0.1-1.4); ABSOLUTE NEUT (AUTO) 5.6 10^3/uL (1.7-8.2); BASOPHILS % (AUTO) 0.4 % (0-2); EOSINOPHILS % (AUTO) 1.3 % (0-6); HEMOGLOBIN 10.6 g/dL (12.0-15.5); LYMPHOCYTES % (AUTO) 5.4 % (13-45); MEAN CORPUSCULAR HEMOGLOBIN 28.5 pg (27.0-33.4); MEAN CORPUSCULAR HGB CONC 33.2 g/dL (32.0-36.0); MEAN CORPUSCULAR VOLUME 86 fl (80-97); MONOCYTES % (AUTO) 6.1 % (3-13); PLATELET COUNT 283 10^3/uL (150-450); RED BLOOD COUNT 3.73 10^6/uL (3.72-5.28); RED CELL DISTRIBUTION WIDTH 17.5 % (11.5-14.0); SEGMENTED NEUTROPHILS % (AUTO) 86.8 % (42-78); TOTAL CELLS COUNTED % (AUTO) 100 %; WHITE BLOOD COUNT 6.5 10^3/uL (4.0-10.5)
[2017-08-31 08:38] LABS: ANION GAP 7 (5-19); BLOOD UREA NITROGEN 14 mg/dL (7-20); CALCIUM 8.9 mg/dL (8.4-10.2); CARBON DIOXIDE 32 mmol/L (22-30); CHLORIDE 102 mmol/L (98-107); GLUCOSE 91 mg/dL (75-110); MAGNESIUM 1.9 mg/dL (1.6-2.3); POTASSIUM 4.1 mmol/L (3.6-5.0); SODIUM 141.1 mmol/L (137-145)
[2017-08-31] MEDS: RIVASTIGMINE 9.5 MG/24 HR PATCH.TD24 TOP SCH (09:26)
[2017-08-31] MEDS: ACETAMINOPHEN 325 MG TABLET PO PRN (09:27)
[2017-08-31] MEDS: FAMOTIDINE 20 MG TABLET PO SCH ×2 (09:27→21:21)
[2017-08-31] MEDS: EZETIMIBE 10 MG TABLET PO SCH (09:28)
[2017-08-31] MEDS: CYANOCOBALAMIN (VITAMIN B-12) 1,000 MCG TABLET PO SCH (09:28)
[2017-08-31] MEDS: FLUOXETINE HCL 20 MG CAPSULE PO SCH (09:28)
[2017-08-31] MEDS: DILTIAZEM HCL 240 MG CAPSULE.CR PO SCH (09:29)
[2017-08-31] MEDS: DIGOXIN 0.125 MG TABLET PO SCH (09:29)
[2017-08-31] MEDS: CYCLOSPORINE 0.05% OPH EMULSIO 0.4 ML DROPERETTE OU SCH ×2 (09:29→17:58)
[2017-08-31] MEDS: APIXABAN 5 MG TABLET PO SCH (09:29)
[2017-08-31] MEDS ORDERED: (PENDING PHARMACY ID) (Lutein [Lutein] 20 MG) PO SCH (10:00)
[2017-08-31] MEDS ORDERED: APIXABAN 5 MG TABLET PO SCH (11:03)
--- NOTE | 2017-08-31 12:19 | Physician Advisory Note ---
Physician Advisor ProgressNote .: Pursuant to the plan for [facility], I have reviewed the medical record for this patient. Physician Advisor Statement: Nice documentation of chronic type Afib. Please consider documenting, if you agree: 1. "Pneumonia, suspect type [gram-pos? gram neg? aspiration? ...], EVIDENCED BY: [(+)fever, N/V/D, "mental status changes/increased confusion due to pneumonia", "RR up to 28", ... cough > usual?, SOB > usual?, wheezing > usual?, pleuritic CP?, "tachycardia not possible b/c of Afib Rx"?, ...] - Already have documented leukocytosis & CXR infiltrate(s). 2. "Chronic Hypoxemic Respiratory Failure requiring __L O2 at baseline" 3. "Acute exacerbation of COPD, evidenced by "? (increased cough/wheeze/ sputum/sputum purulence ...) 4. "Acute hyponatremia, suspect due to " (pneumonia? intravascular volume depletion? Rx? ...] 5. Medical necessity - need documentation such as "Patient not ready for d/c due to recurrent fevers & tachypnea, ...", "I AM CONCERNED about " - When notes state pt "NAD" with lungs CTAB, & "doing well", a reviewer will assume the patient should be ready for d/c that day unless we fill in the gaps in the picture we're painting! Status: appropriate for Inpatient status with documentation of medical necessity points. Thanks! CK
[2017-08-31] MEDS ORDERED: HYDRALAZINE HCL 25 MG TABLET PO ONE (15:00)
[2017-08-31] MEDS: METHYLPREDNISOLONE INJ 40 MG/1 ML SDV IV SCH ×2 (15:15→21:21)
[2017-08-31] MEDS ORDERED: OXYCODONE-ACETAMINOPHEN 5-325 MG TABLET ONE (15:22)
--- NOTE | 2017-08-31 16:18 | PDOC PROGRESS REPORT ---
Subjective Progress Note for:: 08/31/17 Subjective:: Patient complains of still having shortness of breath. Patient also complains of headache. Daughter is at bedside and is concerned about her mother's blood pressure still elevated. She states that this has been an ongoing problem as outpatient Review of system All organ systems evaluated and negative except as in subjective All laboratories and significant diagnostics have been reviewed Reason For Visit: PNEUMONIA Physical Exam Vital Signs: Temp Pulse Resp BP Pulse Ox 97.5 F 77 18 152/75 H 90 L 08/31/17 04:00 08/31/17 04:00 08/31/17 04:00 08/31/17 04:00 08/31/17 04:00 Pulse Oximeter Continuous Start: 08/29/17 23: 14 Freq: RTQ4 Status: Active Document 08/31/17 04:00 [facility] (Rec: 08/31/17 04:55 [facility] [email or web address]) Pulse Oximetry Assessment Oxygen Saturation (92-100) 90 Oxygen Flow Rate (L/min) 2 Oxygen Delivery Method CPAP Fraction of Inspired Oxygen (FIO2) 28 Equipment Usage Equipment in Use Continuous SpO2 Machine # 9 Intake & Output 08/30/17 08/31/17 09/01/17 06:59 06:59 06:59 Intake Total 380 Output Total 1700 2150 Balance -1700 -1770 Weight 66.2 kg General appearance: PRESENT: no acute distress, cooperative, thin Head exam: PRESENT: atraumatic, normocephalic Eye exam: PRESENT: EOMI, PERRLA Ear exam: PRESENT: normal external ear exam, TM's normal bilaterally Mouth exam: PRESENT: moist Neck exam: PRESENT: full ROM. ABSENT: JVD, lymphadenopathy Respiratory exam: PRESENT: crackles, rhonchi. ABSENT: tachypnea, unlabored Cardiovascular exam: PRESENT: RRR. ABSENT: diastolic murmur, systolic murmur Vascular exam: PRESENT: normal capillary refill GI/Abdominal exam: PRESENT: normal bowel sounds, soft. ABSENT: tenderness Extremities exam: PRESENT: full ROM. ABSENT: joint swelling, pedal edema Musculoskeletal exam: ABSENT: ambulatory Neurological exam: PRESENT: alert, oriented to person, oriented to place, CN II- XII grossly intact Psychiatric exam: PRESENT: appropriate affect, normal mood Skin exam: PRESENT: intact, normal color Results Laboratory Results: 08/30/17 06:43 08/30/17 06:43 08/30/17 08/30/17 08/30/17 06:43 06:43 06:43 WBC 8.6 RBC 3.78 Hgb 10.9 L Hct 32.1 L MCV 85 MCH 28.8 MCHC 34.0 RDW 17.1 H Plt Count 306 Seg Neutrophils % Not Reportable Lymphocytes % Not Reportable Monocytes % Not Reportable Eosinophils % Not Reportable Basophils % Not Reportable Absolute Neutrophils Not Reportable Absolute Lymphocytes Not Reportable Absolute Monocytes Not Reportable Absolute Eosinophils Not Reportable Absolute Basophils Not Reportable Sodium 141.2 Potassium 3.0 L* Chloride 101 Carbon Dioxide 29 Anion Gap 11 BUN 14 Creatinine 0.53 Est GFR ( Amer) > 60 Est GFR (Non-Af Amer) > 60 Glucose 87 Calcium 9.2 Magnesium 1.3 L Impressions: Chest X-Ray 08/29/17 19:44 IMPRESSION: In the appropriate clinical setting, findings are consistent with multi lobar pneumonia. Assessment & Plan - Diagnosis (1) Acute respiratory failure with hypoxemia Is this a current diagnosis for this admission?: Yes Plan: Patient does not use oxygen as outpatient. Wean off as tolerated (2) Hypokalemia Is this a current diagnosis for this admission?: Yes Plan: Replaced (3) Hypomagnesemia Is this a current diagnosis for this admission?: Yes Plan: Replaced (4) Left upper lobe pneumonia Qualifiers: Pneumonia type: aspiration pneumonia Aspiration pneumonia type: due to vomit Qualified Code(s): J69.0 - Pneumonitis due to inhalation of food and vomit Is this a current diagnosis for this admission?: Yes Plan: Change to zosyn IV (5) Urinary retention Is this a current diagnosis for this admission?: Yes Plan: Continue robin and flomax (6) Hypertension Qualifiers: Hypertension type: essential hypertension Qualified Code(s): I10 - Essential (primary) hypertension Is this a current diagnosis for this admission?: Yes (7) HTN (hypertension) Qualifiers: Hypertension type: essential hypertension Qualified Code(s): I10 - Essential (primary) hypertension Is this a current diagnosis for this admission?: Yes Plan: Long-standing problem including as outpatient. Will add hydralazine p.o. (8) Headache Qualifiers: Headache chronicity pattern: acute headache Is this a current diagnosis for this admission?: Yes Plan: Pain management - Time Time Spent with patient: 15-24 minutes Medications reviewed and adjusted accordingly: Yes Anticipated discharge: Other - IVAN Within: within 72 hours - Inpatient Certification Based on my medical assessment, after consideration of the patient's comorbidities, presenting symptoms, or acuity I expect that the services needed warrant INPATIENT care.: Yes I certify that my determination is in accordance with my understanding of Medicare's requirements for reasonable and necessary INPATIENT services [42 CFR 412.3e].: Yes Medical Necessity: Need for Nebulizer Therapy and Monitoring of Response, Need for IV Antibiotics - CPAP and oxygen
[2017-08-31] MEDS: APIXABAN 2.5 MG TABLET PO SCH (17:57)
[2017-08-31] MEDS: TAMSULOSIN HCL 0.4 MG CAP.SR.24H PO SCH (17:57)
[2017-08-31] MEDS ORDERED: PIPERACILLIN SODIUM/TAZOBACTAM 3.375 GM in NORMAL SALINE 100 ML IV SCH (18:00)
[2017-08-31] MEDS: PIPERACILLIN SODIUM/TAZOBACTAM 2.25 GM in NORMAL SALINE 50 ML IV SCH (18:39)
[2017-08-31] MEDS: HYDRALAZINE HCL 25 MG TABLET PO SCH (21:19)
[2017-08-31] MEDS: OXYCODONE-ACETAMINOPHEN 5-325 MG TABLET PO PRN (21:20)
[2017-08-31] MEDS: GABAPENTIN 300 MG CAPSULE PO SCH (21:21)
[2017-08-31] MEDS: INSULIN LISPRO 100 UNIT/ML 3 ML VIAL SUBCUT PRN (21:31)
[2017-09-01] MEDS: METHYLPREDNISOLONE INJ 40 MG/1 ML SDV IV SCH ×3 (05:26→21:55)
[2017-09-01] MEDS: PIPERACILLIN SODIUM/TAZOBACTAM 2.25 GM in NORMAL SALINE 50 ML IV SCH ×6 (05:27→23:00)
[2017-09-01] MEDS: HYDRALAZINE HCL 25 MG TABLET PO SCH ×3 (05:35→21:50)
[2017-09-01 07:06] LABS: HEMATOCRIT 30.8 % (36.0-47.0); HEMOGLOBIN 10.3 g/dL (12.0-15.5); MEAN CORPUSCULAR HEMOGLOBIN 28.5 pg (27.0-33.4); MEAN CORPUSCULAR HGB CONC 33.5 g/dL (32.0-36.0); MEAN CORPUSCULAR VOLUME 85 fl (80-97); PLATELET COUNT 286 10^3/uL (150-450); RED BLOOD COUNT 3.62 10^6/uL (3.72-5.28); RED CELL DISTRIBUTION WIDTH 17.5 % (11.5-14.0); WHITE BLOOD COUNT 5.8 10^3/uL (4.0-10.5)
[2017-09-01 07:16] LABS: ANION GAP 9 (5-19); BLOOD UREA NITROGEN 14 mg/dL (7-20); CALCIUM 8.6 mg/dL (8.4-10.2); CARBON DIOXIDE 30 mmol/L (22-30); CHLORIDE 100 mmol/L (98-107); GLUCOSE 136 mg/dL (75-110); POTASSIUM 4.4 mmol/L (3.6-5.0); SODIUM 138.6 mmol/L (137-145)
[2017-09-01 07:40] LABS: ABSOLUTE LYMPHOCYTES# (MANUAL) 0.3 10^3/uL (0.5-4.7); ABSOLUTE MONOCYTES # (MANUAL) 0.1 10^3/uL (0.1-1.4); ABSOLUTE NEUTROPHILS# (MANUAL) 5.3 10^3/uL (1.7-8.2); BASOPHILS % (MANUAL) 0 % (0-2); EOSINOPHILS % (MANUAL) 0 % (0-6); LYMPHOCYTES % (MANUAL) 6 % (13-45); MONOCYTES % (MANUAL) 2 % (3-13); SEGMENTED NEUTROPHILS % (MAN) 92 % (42-78); TOTAL CELLS COUNTED 100
[2017-09-01 07:41] LABS: ANISOCYTOSIS 1+; BURR CELLS SLIGHT; OVALOCYTES 1+; PLATELET COMMENT ADEQUATE; POIKILOCYTOSIS 1+; SCHISTOCYTES SLIGHT
[2017-09-01] MEDS: OXYCODONE-ACETAMINOPHEN 5-325 MG TABLET PO PRN ×2 (08:02→21:50)
[2017-09-01] MEDS: RIVASTIGMINE 9.5 MG/24 HR PATCH.TD24 TOP SCH (08:02)
[2017-09-01] MEDS: IPRATROPIUM/ALBUTEROL 0.5-2.5 MG/3 ML AMPUL NEB SCH ×3 (08:36→23:38)
[2017-09-01] MEDS: EZETIMIBE 10 MG TABLET PO SCH (09:29)
[2017-09-01] MEDS: DILTIAZEM HCL 240 MG CAPSULE.CR PO SCH (09:29)
[2017-09-01] MEDS: CYANOCOBALAMIN (VITAMIN B-12) 1,000 MCG TABLET PO SCH (09:29)
[2017-09-01] MEDS: CYCLOSPORINE 0.05% OPH EMULSIO 0.4 ML DROPERETTE OU SCH ×2 (09:29→18:23)
[2017-09-01] MEDS: DIGOXIN 0.125 MG TABLET PO SCH (09:30)
[2017-09-01] MEDS: FAMOTIDINE 20 MG TABLET PO SCH ×2 (09:30→21:50)
[2017-09-01] MEDS: APIXABAN 2.5 MG TABLET PO SCH ×2 (09:30→18:22)
[2017-09-01] MEDS: FLUOXETINE HCL 20 MG CAPSULE PO SCH (09:30)
[2017-09-01] MEDS ORDERED: EZETIMIBE 10 MG TABLET PO SCH (10:00)
--- NOTE | 2017-09-01 16:43 | PDOC PROGRESS REPORT ---
Subjective Progress Note for:: 09/01/17 Subjective:: Patient seems to be breathing better ; she is now on CPAP Support as she was sleeping No chest pain alert and awake Oriented answering questions appropriately Reason For Visit: PNEUMONIA Physical Exam Vital Signs: Temp Pulse Resp BP Pulse Ox 97.7 F 76 20 129/71 H 95 09/01/17 15:29 09/01/17 15:29 09/01/17 15:29 09/01/17 15:29 09/01/17 15:29 Pulse Oximeter Continuous Start: 08/29/17 23: 14 Freq: RTQ4 Status: Active Document 09/01/17 12:19 NSC (Rec: 09/01/17 12:20 NSC [email or web address]) Pulse Oximetry Assessment Oxygen Saturation (92-100) 91 Oxygen Flow Rate (L/min) 3 Oxygen Delivery Method Nasal Cannula Fraction of Inspired Oxygen (FIO2) 32 Equipment Usage Equipment in Use Continuous SpO2 Machine # N 9 Intake & Output 08/31/17 09/01/17 09/02/17 00:59 00:59 00:59 Intake Total 1810 105 Output Total 550 650 Balance 1260 -545 Weight 68.5 kg General appearance: PRESENT: no acute distress, well-developed, well-nourished Head exam: PRESENT: atraumatic, normocephalic Eye exam: PRESENT: conjunctiva pink, EOMI, PERRLA. ABSENT: scleral icterus Ear exam: PRESENT: normal external ear exam Mouth exam: PRESENT: moist, tongue midline Neck exam: ABSENT: carotid bruit, JVD, lymphadenopathy, thyromegaly Respiratory exam: PRESENT: clear to auscultation reji. ABSENT: rales, rhonchi, wheezes Cardiovascular exam: PRESENT: RRR. ABSENT: diastolic murmur, rubs, systolic murmur Pulses: PRESENT: normal dorsalis pedis pul Vascular exam: PRESENT: normal capillary refill GI/Abdominal exam: PRESENT: normal bowel sounds, soft. ABSENT: distended, guarding, mass, organolmegaly, rebound, tenderness Rectal exam: PRESENT: deferred Extremities exam: PRESENT: full ROM. ABSENT: calf tenderness, clubbing, pedal edema Neurological exam: PRESENT: alert, awake, CN II-XII grossly intact Psychiatric exam: PRESENT: appropriate affect, normal mood Skin exam: PRESENT: dry, intact, warm. ABSENT: cyanosis, rash Results Laboratory Results: 09/01/17 06:15 09/01/17 06:15 09/01/17 09/01/17 06:15 06:15 WBC 5.8 RBC 3.62 L Hgb 10.3 L Hct 30.8 L MCV 85 MCH 28.5 MCHC 33.5 RDW 17.5 H Plt Count 286 Seg Neutrophils % Not Reportable Lymphocytes % Not Reportable Monocytes % Not Reportable Eosinophils % Not Reportable Basophils % Not Reportable Absolute Neutrophils Not Reportable Absolute Lymphocytes Not Reportable Absolute Monocytes Not Reportable Absolute Eosinophils Not Reportable Absolute Basophils Not Reportable Sodium 138.6 Potassium 4.4 Chloride 100 Carbon Dioxide 30 Anion Gap 9 BUN 14 Creatinine 0.54 Est GFR ( Amer) > 60 Est GFR (Non-Af Amer) > 60 Glucose 136 H Calcium 8.6 Magnesium 2.0 Impressions: Chest X-Ray 08/29/17 19:44 IMPRESSION: In the appropriate clinical setting, findings are consistent with multi lobar pneumonia. Assessment & Plan - Diagnosis (1) Pneumonia Qualifiers: Pneumonia type: due to unspecified organism Laterality: unspecified laterality Lung location: unspecified part of lung Qualified Code(s): J18.9 - Pneumonia, unspecified organism Is this a current diagnosis for this admission?: Yes Plan: Patient did not respond initially to Levaquin She has improved with Zosyn Continue Zosyn We will add doxycycline p.o. to broaden the spectrum Repeat chest x-ray in a.m. (2) Acute respiratory failure with hypoxemia Is this a current diagnosis for this admission?: Yes Plan: secondary to pneumonia pneumonia was present on admission (3) HTN (hypertension) Qualifiers: Hypertension type: essential hypertension Qualified Code(s): I10 - Essential (primary) hypertension Is this a current diagnosis for this admission?: Yes Plan: BP well controlled continue present meds (4) Urinary retention Is this a current diagnosis for this admission?: Yes Plan: robin catheter will be d/c prior to discharge - Time Time Spent with patient: 25-34 minutes
[2017-09-01] MEDS: TAMSULOSIN HCL 0.4 MG CAP.SR.24H PO SCH (18:23)
[2017-09-01] MEDS: INSULIN LISPRO 100 UNIT/ML 3 ML VIAL SUBCUT PRN ×2 (19:20→22:56)
[2017-09-01] MEDS: GABAPENTIN 300 MG CAPSULE PO SCH (21:49)
[2017-09-01] MEDS: DOXYCYCLINE HYCLATE 100 MG TABLET PO SCH (21:54)
[2017-09-02] MEDS: PIPERACILLIN SODIUM/TAZOBACTAM 2.25 GM in NORMAL SALINE 50 ML IV SCH ×3 (06:11→18:51)
[2017-09-02] MEDS: METHYLPREDNISOLONE INJ 40 MG/1 ML SDV IV SCH ×3 (06:11→22:52)
[2017-09-02] MEDS: HYDRALAZINE HCL 25 MG TABLET PO SCH ×3 (06:12→22:21)
[2017-09-02] MEDS: IPRATROPIUM/ALBUTEROL 0.5-2.5 MG/3 ML AMPUL NEB SCH ×2 (07:39→16:51)
--- NOTE | 2017-09-02 08:43 | RADIOLOGY REPORT (SQ) ---
EXAM DESCRIPTION: CHEST SINGLE VIEW COMPLETED DATE/TIME: 09/02/2017 8:31 am REASON FOR STUDY: SOB COMPARISON: 08/29/2017. EXAM PARAMETERS: NUMBER OF VIEWS: One view. TECHNIQUE: Single frontal radiographic view of the chest acquired. RADIATION DOSE: NA LIMITATIONS: None. FINDINGS: LUNGS AND PLEURA: There is some left basilar consolidation without obscuration left hemidi aphragm and left pleural effusion. Right upper lobe infiltrate noted. Bilateral pleural effusions. MEDIASTINUM AND HILAR STRUCTURES: No masses. Contour normal. HEART AND VASCULAR STRUCTURES: Cardiomegaly and aortic atherosclerosis. The pulmonary vasculature is unchanged. BONES: No acute findings. HARDWARE: None in the chest. OTHER: No other significant finding. IMPRESSION: Cardiomegaly and aortic atherosclerosis. Right upper lobe alveolar infiltrate. Left ba silar consolidation and effusion. Right pleural effusion. TECHNICAL DOCUMENTATION: JOB ID: [id number] 2010 [employer]- All Rights Reserved
[2017-09-02] MEDS: APIXABAN 2.5 MG TABLET PO SCH ×2 (10:44→18:51)
[2017-09-02] MEDS: DOXYCYCLINE HYCLATE 100 MG TABLET PO SCH ×2 (10:44→22:52)
[2017-09-02] MEDS: EZETIMIBE 10 MG TABLET PO SCH (10:44)
[2017-09-02] MEDS: FLUOXETINE HCL 20 MG CAPSULE PO SCH (10:45)
[2017-09-02] MEDS: DILTIAZEM HCL 240 MG CAPSULE.CR PO SCH (10:45)
[2017-09-02] MEDS: DIGOXIN 0.125 MG TABLET PO SCH (10:45)
[2017-09-02] MEDS: CYCLOSPORINE 0.05% OPH EMULSIO 0.4 ML DROPERETTE OU SCH ×2 (10:46→18:51)
[2017-09-02] MEDS: RIVASTIGMINE 9.5 MG/24 HR PATCH.TD24 TOP SCH (10:46)
[2017-09-02] MEDS: FAMOTIDINE 20 MG TABLET PO SCH ×2 (10:47→22:21)
--- NOTE | 2017-09-02 10:58 | PDOC DISCHARGE SUMMARY ---
General - Admit/Disc Date/PCP Admission Date/Primary Care Provider: 08/31/17 11:33 BRODY MARTINEZ Discharge Date: 09/02/17 - Discharge Diagnosis (1) Pneumonia Is this a current diagnosis for this admission?: Yes (2) Acute respiratory failure with hypoxemia Is this a current diagnosis for this admission?: Yes (3) HTN (hypertension) Is this a current diagnosis for this admission?: Yes (4) Urinary retention Is this a current diagnosis for this admission?: Yes - Additional Information Resuscitation Status: Full Code Discharge Diet: As Tolerated Prescriptions: Amoxicillin/Potassium Clav [Augmentin 500-125 Tablet] 1 each PO BID #14 tablet Prednisone 20 mg PO ASDIR PRN #15 tablet PRN Reason: Home Medications: Acetaminophen [Tylenol Extra Strength] 500 mg PO Q12HP PRN 08/30/17 Albuterol Sulfate [Proair HFA Inhalation Aerosol 8.5 gm MDI] 2 puff IH Q12HP PRN 08/30/17 Amoxicillin Trihydrate [Amoxil 500 mg Capsule] 2,000 mg PO ASDIR PRN 08/30/17 Budesonide/Formoterol Fumarate [Symbicort 160-4.5 Mcg Inhaler] 2 puff IH BID Cyanocobalamin (Vitamin B-12) [B-12] 1,000 mcg PO DAILY 08/30/17 Cyclosporine 0.05% Oph Emulsio [Restasis 0.05% Oph Emulsion Pf 0.4 ml] 1 drop OU BID 08/30/17 Diclofenac Sodium [Voltaren] 100 gm TOP Q6HP PRN 08/30/17 Digoxin [Lanoxin] 125 mcg PO DAILY 08/30/17 Diltiazem HCl [Cardizem Cd 240 mg Capsule.cr] 240 mg PO DAILY 08/30/17 Ezetimibe [Zetia 10 mg Tablet] 10 mg PO DAILY 08/30/17 Fluticasone/Salmeterol [Advair 250-50 Diskus 28 dose] 1 puff PO BID 08/30/17 Furosemide [Lasix 20 mg Tablet] 20 mg PO DAILY 08/30/17 Gabapentin [Neurontin 300 mg Capsule] 300 mg PO QHS 08/30/17 Lutein 20 mg PO DAILY 08/30/17 Melatonin 5 mg PO QHS 08/30/17 Metformin HCl 500 mg PO MEALS 08/30/17 Nitroglycerin [Nitrostat 0.4 mg (1/150 Gr) Tabs 25/Bottle] 1 tab PO Q5MP PRN Pantoprazole Sodium [Protonix] 40 mg PO DAILY 08/30/17 Pediatric Multivitamin No.49 [Flintstones Gummies] 1 tab PO DAILY 08/30/17 Rivastigmine [Exelon 9.5 mg/24 Hr Transdermal Patch] 1 patch TOP DAILY 08/30/17 Vit A/Vit C/Vit E/Zinc/Copper [Preservision Areds Tablet] 1 tab PO DAILY Amoxicillin/Potassium Clav [Augmentin 500-125 Tablet] 1 each PO BID #14 tablet 09/02/17 Apixaban [Eliquis 2.5 mg Tablet] 2.5 mg PO BID tablet 09/02/17 Doxycycline Hyclate [Vibramycin 100 mg Tablet] 100 mg PO Q12 tablet 09/02/17 Prednisone 20 mg PO ASDIR PRN #15 tablet 09/02/17 History of Present Illness Patient complains of: SOB and cough History of Present Illness: KENIA SENIOR is a 87 year old female who recently entered an assisted living facility. Last night she developed urinary incontinence and so she asked her daughter to take her to urgent care. At urgent care she was unable to urinate and so left to go to dinner with her daughter. At dinner she developed vomiting followed by shortness of breath she was brought to the emergency room and was found to be hypoxemic. Chest x-ray showed a new infiltrate in the left lower lobe. Patient was started on antibiotics and supplemental oxygen. A Robin was inserted for urinary retention. Patient is admitted for further c Hospital Course Hospital Course: (1) Pneumonia Qualifiers: Pneumonia type: due to unspecified organism Laterality: unspecified laterality Lung location: unspecified part of lung Qualified Code(s): J18.9 - Pneumonia, unspecified organism Is this a current diagnosis for this admission?: Yes Plan: Patient did not respond initially to Levaquin She has improved with Zosyn Patient was discharged on Agmentin po (2) Acute respiratory failure with hypoxemia Is this a current diagnosis for this admission?: Yes Plan: secondary to pneumonia pneumonia was present on admission O2 requirements will be checked prior to discharge and patient will be discharged with O2 if needed (3) HTN (hypertension) Qualifiers: Hypertension type: essential hypertension Qualified Code(s): I10 - Essential (primary) hypertension Is this a current diagnosis for this admission?: Yes Plan: BP well controlled continue present meds (4) Urinary retention Is this a current diagnosis for this admission?: Yes Plan: robin catheter will be d/c prior to discharge ; Physical Exam Vital Signs: Temp Pulse Resp BP Pulse Ox 97.7 F 63 16 138/65 H 97 09/02/17 09:52 09/02/17 09:52 09/02/17 09:52 09/02/17 09:52 09/02/17 09:52 Pulse Oximeter Continuous Start: 08/29/17 23: 14 Freq: RTQ4 Status: Active Document 09/02/17 07:39 TPO (Rec: 09/02/17 08:21 TPO [email or web address]) Pulse Oximetry Assessment Oxygen Saturation (92-100) 94 Oxygen Flow Rate (L/min) 2 Oxygen Delivery Method Nasal Cannula Fraction of Inspired Oxygen (FIO2) 28 Equipment Usage Equipment in Use Continuous SpO2 Machine # 9 Intake & Output 09/01/17 09/02/17 09/03/17 00:59 00:59 00:59 Intake Total 1810 345 Output Total 550 1750 600 Balance 1260 -1405 -600 Weight 68.5 kg 68.3 kg General appearance: PRESENT: no acute distress, well-developed, well-nourished Head exam: PRESENT: atraumatic, normocephalic Eye exam: PRESENT: conjunctiva pink, EOMI, PERRLA. ABSENT: scleral icterus Ear exam: PRESENT: normal external ear exam Mouth exam: PRESENT: moist, tongue midline Neck exam: ABSENT: carotid bruit, JVD, lymphadenopathy, thyromegaly Respiratory exam: PRESENT: clear to auscultation reji. ABSENT: rales, rhonchi, wheezes Cardiovascular exam: PRESENT: RRR. ABSENT: diastolic murmur, rubs, systolic murmur Pulses: PRESENT: normal dorsalis pedis pul Vascular exam: PRESENT: normal capillary refill GI/Abdominal exam: PRESENT: normal bowel sounds, soft. ABSENT: distended, guarding, mass, organolmegaly, rebound, tenderness Rectal exam: PRESENT: deferred Extremities exam: PRESENT: full ROM. ABSENT: calf tenderness, clubbing, pedal edema Neurological exam: PRESENT: alert, awake, CN II-XII grossly intact Psychiatric exam: PRESENT: appropriate affect, normal mood Skin exam: PRESENT: dry, intact, warm. ABSENT: cyanosis, rash Results Laboratory Results: 09/01/17 06:15 09/01/17 06:15 Impressions: Chest X-Ray 09/02/17 08:00 IMPRESSION: Cardiomegaly and aortic atherosclerosis. Right upper lobe alveolar infiltrate. Left basilar consolidation and effusion. Right pleural effusion. Plan Discharge Plan: discharge to assisted living follow up with Dr Martinez in 1 week Time Spent: Greater than 30 Minutes
[2017-09-02] MEDS: CYANOCOBALAMIN (VITAMIN B-12) 1,000 MCG TABLET PO SCH (11:18)
[2017-09-02] MEDS: OXYCODONE-ACETAMINOPHEN 5-325 MG TABLET PO PRN ×2 (14:41→22:21)
[2017-09-02] MEDS: TAMSULOSIN HCL 0.4 MG CAP.SR.24H PO SCH (18:51)
[2017-09-02 21:25] VITALS: BP 158/72
[2017-09-02] MEDS: GABAPENTIN 300 MG CAPSULE PO SCH (22:20)
[2017-09-03] MEDS: IPRATROPIUM/ALBUTEROL 0.5-2.5 MG/3 ML AMPUL NEB SCH (00:11)
--- NOTE | 2017-09-15 19:24 | Progress Note ---
Provider Note Provider Note: 09/15 Patient was admitted with aspiration pneumonia ; left lower lobe pneumonia was diagnosed on x-ray
== END 2017-09-02 23:45 | DRG 177 ==
LOC: ER 19:25 → EH 22:18 → INTOOBSV 22:18 → 2N 23:54 → OBSVTOIN 08-31 11:33
PROVIDERS: ADMIT Internal Medicine; ATTEND Internal Medicine
PROC: 3E0F73Z Introduction of Anti-inflammatory into Respiratory Tract, Via Natural or Artificial Opening (ICD-10-PCS; principal; 2017-08-31)
PROC: 5A09457 Assistance with Respiratory Ventilation, 24-96 Consecutive Hours, Continuous Positive Airway Pressure (ICD-10-PCS; 2017-08-31)
DX: J69.0 Pneumonitis due to inhalation of food and vomit (principal); J96.21 Acute and chronic respiratory failure with hypoxia; J43.9 Emphysema, unspecified; I10 Essential (primary) hypertension; J18.9 Pneumonia, unspecified organism; I48.2 Chronic atrial fibrillation; E11.9 Type 2 diabetes mellitus without complications; E87.6 Hypokalemia; E83.42 Hypomagnesemia; G47.33 Obstructive sleep apnea (adult) (pediatric); R33.9 Retention of urine, unspecified; R51 Headache; K21.9 Gastro-esophageal reflux disease without esophagitis; M19.90 Unspecified osteoarthritis, unspecified site; F32.9 Major depressive disorder, single episode, unspecified; Z89.422 Acquired absence of other left toe(s); Z79.899 Other long term (current) drug therapy; Z90.49 Acquired absence of other specified parts of digestive tract; Z79.02 Long term (current) use of antithrombotics/antiplatelets; I25.2 Old myocardial infarction
CPT/HCPCS: 36415; 51702; 71045; 80048; 80053; 80162; 81001; 82803; 82962; 83605; 83735; 84484; 85025; 85610; 87040; 87070; 87086; 87205; 93005; 93010; 94660; 94667; 94668; 94762; 96360; 99285; J1815; J1956; J2543; J2920; J3475; J3490; J7030; J7620

== ENCOUNTER 2018-02-25 15:10 | Emergency (ER) | payer MEDICARE, OTHER ==
[2018-02-25] MEDS ORDERED: METHYLPREDNISOLONE ACETATE INJ 40 MG/1 ML ML INJ ONE (15:29)
[2018-02-25] MEDS ORDERED: BUPIVACAINE HCL 0.75% INJ/PF (7.5 MG/1 ML) 10 ML SDV INJ ONE (15:29)
[2018-02-25 15:34] VITALS: BP 153/63
--- NOTE | 2018-02-25 15:44 | ER Document Report ---
ED Headache - General Chief Complaint: Headache Stated Complaint: HEADACHE Time Seen by Provider: 02/25/18 15:29 Mode of Arrival: Ambulatory Information source: Patient Notes: Chief complaint: Headache History of complain:( obtained from----patient) 87 years old female presents today with right sided headache over the occipitoparietal region with the right cervical muscular pain. Since this morning around 1030. She woke up with it. Denies any focal weakness numbness tingling sensation. Denies any fever chills or other constitutional symptoms. Denies any known injury. Onset: As above gradual Duration: Since this morning Severity: Moderate Quality: Sharp Context: Unknown Exacerbating factor and relieving factors: Increased in intensity by change of position of the neck REVIEW OF SYSTEMS: CONSTITUTIONAL : Denies fever, chills, or sweats. Denies recent illness. EENT: Denies eye, ear, throat, or mouth pain or symptoms. Denies nasal or sinus congestion or discharge. Denies throat, tongue, or mouth swelling or difficulty swallowing. CARDIOVASCULAR: Denies chest pain. Denies palpitations or racing or irregular heart beat. Denies ankle edema. RESPIRATORY: Denies cough, cold, or chest congestion. Denies shortness of breath, difficulty breathing, or wheezing. GASTROINTESTINAL: Denies distention. Denies nausea, vomiting, or diarrhea. Denies blood in vomitus, stools, or per rectum. Denies black, tarry stools. Denies constipation. GENITOURINARY: Denies difficulty urinating, painful urination, burning, frequency, blood in urine, or discharge. FEMALE GENITOURINARY: Denies vaginal bleeding, heavy or abnormal periods, irregular periods. Denies vaginal discharge or odor. MUSCULOSKELETAL: Denies back or neck pain or stiffness. Denies joint pain or swelling. SKIN: Denies rash, lesions or sores. HEMATOLOGIC : Denies easy bruising or bleeding. LYMPHATIC: Denies swollen, enlarged glands. NEUROLOGICAL: Denies confusion or altered mental status. Denies passing out or loss of consciousness. Denies dizziness or lightheadedness. Denies Denies weakness or paralysis or loss of use of either side. Denies problems with gait or speech. Denies sensory loss, numbness, or tingling. Denies seizures. PSYCHIATRIC: Denies anxiety or stress. Denies depression, suicidal ideation, or homicidal ideation. ALL OTHER SYSTEMS REVIEWED AND NEGATIVE. PHYSICAL EXAMINATION: GENERAL: Well-appearing, well-nourished and seems to be in mild to moderate discomfort HEAD: Atraumatic, normocephalic. EYES: Pupils equal round and reactive to light, extraocular movements intact, conjunctiva are normal. ENT: Nares patent, oropharynx clear without exudates. Moist mucous membranes. NECK: Sharp tenderness over the right paraspinal muscle at the root noted. When pressed upon the headache had subsided. Range of motion could not be performed as she is old and has severe arthritis of the neck LUNGS: Breath sounds clear to auscultation bilaterally and equal. No wheezes rales or rhonchi. HEART: Regular rate and rhythm without murmurs ABDOMEN: Soft, nontender, nondistended abdomen. No guarding, no rebound. No masses appreciated. Examination of genitals-deferred Musculoskeletal: Not applicable NEUROLOGICAL: Cranial nerves grossly intact. Normal speech, normal gait. Normal sensory, motor exams PSYCH: Normal mood, normal affect. SKIN: Warm, Dry, normal turgor, no rashes or lesions noted. Dictation was performed using [employer] voice recognition software TRAVEL OUTSIDE OF THE [place] IN LAST 30 DAYS: No - HPI Notes: Dictated - Related Data Allergies/Adverse Reactions: atorvastatin calcium [From Lipitor] Allergy (Intermediate, Verified 08/29/17 19: 26) MUSCLE PAIN Vuvfcgy-Ldu-Ksw Reductase Inhibitor Allergy (Verified 08/29/17 19:26) MUSCLE PAIN Past Medical History - Social History Smoking Status: Unknown if Ever Smoked Cigarette use (# per day): No Chew tobacco use (# tins/day): No Smoking Education Provided: No Frequency of alcohol use: Rare Family History: Reviewed & Not Pertinent Patient has suicidal ideation: No Patient has homicidal ideation: No - Past Medical History Cardiac Medical History: Reports: Hx Atrial Fibrillation, Hx Coronary Artery Disease, Hx Heart Attack - 1998, Hx Hypercholesterolemia, Hx Hypertension Denies: Hx Congestive Heart Failure, Hx Peripheral Vascular Disease, Hx Pulmonary Embolism, Hx Heart Murmur Pulmonary Medical History: Reports: Hx Asthma, Hx Bronchitis, Hx COPD, Hx Pneumonia - many times, Hx Sleep Apnea - CPAP Neurological Medical History: Reports: Hx Cerebrovascular Accident - 2001. Denies: Hx Seizures Endocrine Medical History: Reports: Hx Diabetes Mellitus Type 2. Denies: Hx Graves' Disease, Hx Hyperthyroidism, Hx Hypothyroidism Renal/ Medical History: Denies: Hx End Stage Renal Disease, Hx Kidney Stones, Hx Peritoneal Dialysis Malignancy Medical History: Denies: Hx Leukemia, Hx Lung Cancer GI Medical History: Reports: Hx Gastroesophageal Reflux Disease - takes Nexium. Denies: Hx Crohn's Disease, Hx Hepatitis, Hx Hiatal Hernia, Hx Irritable Bowel , Hx Liver Failure, Hx Pancreatitis, Hx Ulcer Musculoskeletal Medical History: Reports Hx Arthritis, Denies Hx Fibromyalgia, Denies Hx Multiple Sclerosis, Denies Hx Muscular Dystrophy Psychiatric Medical History: Reports: Hx Depression Denies: Hx Bipolar Disorder, Hx Dementia, Hx Post Traumatic Stress Disorder, Hx Schizophrenia Traumatic Medical History: Denies: Hx Fractures Infectious Medical History: Denies: Hx Hepatitis, Hx HIV Past Surgical History: Reports: Hx Appendectomy, Hx Cardiac Catheterization, Hx Cholecystectomy, Hx Hysterectomy, Hx Open Heart Surgery - CARDIAC CATH, Hx Tonsillectomy. Denies: Hx Bowel Surgery, Hx Section, Hx Colostomy, Hx Coronary Artery Bypass Graft, Hx Gastric Bypass Surgery, Hx Herniorrhaphy, Hx Mastectomy, Hx Pacemaker, Hx Tubal Ligation - Immunizations Hx Pneumococcal Vaccination: 05/03/16 Review of Systems - Review of Systems Notes: Dictated Physical Exam - Vital signs Vitals: Temp Pulse Resp BP Pulse Ox 98.7 F 62 18 153/63 H 96 02/25/18 15:20 02/25/18 15:20 02/25/18 15:20 02/25/18 15:20 02/25/18 15:20 - Notes Notes: Dictated Course - Vital Signs Vital signs: Temp Pulse Resp BP Pulse Ox 98.7 F 62 18 153/63 H 96 02/25/18 15:20 02/25/18 15:20 02/25/18 15:20 02/25/18 15:20 02/25/18 15:20 Procedures - Additional Procedures Trigger point injection Time performed: 15:43 Additional Procedures: Other Notes: 02/25/18 15:43 Under aseptic condition using sterile technique after cleaning with alcohol right sided paraspinal muscles of the neck at the C5-C6 level was injected with 40 mg of Depo-Medrol and Marcaine 4 cc without any complications. Patient tolerated the procedure well, pain and headache was relieved Discharge - Discharge Clinical Impression: Myalgia and myositis Headache Qualifiers: Headache type: tension-type Headache chronicity pattern: acute headache Intractability: not intractable Qualified Code(s): G44.209 - Tension-type headache, unspecified, not intractable Cervical sprain Qualifiers: Encounter type: initial encounter Qualified Code(s): S13.9XXA - Sprain of joints and ligaments of unspecified parts of neck, initial encounter Condition: Fair Disposition: HOME, SELF-CARE Instructions: Headache ([facility]) Referrals: BRODY MARTINEZ MD [Primary Care Provider] - Follow up as needed
== END 2018-02-25 16:28 | disposition home or self-care (01) ==
LOC: ER 15:10
PROC: 3E023BZ Introduction of Anesthetic Agent into Muscle, Percutaneous Approach (ICD-10-PCS; principal; 2018-02-25)
DX: M79.1 Myalgia (principal); M60.9 Myositis, unspecified; G44.209 Tension-type headache, unspecified, not intractable; S13.9XXA Sprain of joints and ligaments of unspecified parts of neck, initial encounter; X58.XXXA Exposure to other specified factors, initial encounter; I48.91 Unspecified atrial fibrillation; I25.10 Atherosclerotic heart disease of native coronary artery without angina pectoris; E78.00 Pure hypercholesterolemia, unspecified; I10 Essential (primary) hypertension; E11.9 Type 2 diabetes mellitus without complications; Z86.73 Personal history of transient ischemic attack (TIA), and cerebral infarction without residual deficits; I25.2 Old myocardial infarction; Z90.49 Acquired absence of other specified parts of digestive tract; Z90.710 Acquired absence of both cervix and uterus
CPT/HCPCS: 99284; 96374; 20552; J3490; J1020

== ENCOUNTER 2018-11-19 12:56 | Emergency (ER) | payer MEDICARE, OTHER ==
[2018-11-19 13:29] VITALS: BP 147/76
--- NOTE | 2018-11-19 13:49 | RADIOLOGY REPORT (SQ) ---
EXAM DESCRIPTION: CT HEAD WITHOUT COMPLETED DATE/TIME: 11/19/2018 1:30 pm REASON FOR STUDY: FALL COMPARISON: 06/01/2018 TECHNIQUE: Axial images acquired through the brain without intravenous contrast. Images reviewed wi th bone, brain and subdural windows. Additional sagittal and coronal reconstructions were generated. Images stored on PACS. All CT scanners at this facility use dose modulation, iterative reconstruction, and/or weight based d osing when appropriate to reduce radiation dose to as low as reasonably achievable (ALARA). [facility]: Dose Right [facility]: CareDose [facility]: Dose Right [facility]: Teradose 4D [facility]: [employer] RADIATION DOSE: CT Rad equipment meets quality standard of care and radiation dose reduction techniq ues were employed. CTDIvol: 53.2 mGy. DLP: 1044 mGy-cm. mGy. LIMITATIONS: None. FINDINGS: VENTRICLES: Normal size and contour. CEREBRUM: No masses. No hemorrhage. No midline shift. No evidence for acute infarction. Few scatte red areas of low density in the white matter most likely chronic small vessel ischemic changes. Ther e is encephalomalacia of the right cerebellar hemisphere, in keeping with remote prior infarction. CEREBELLUM: No masses. No hemorrhage. No alteration of density. No evidence for acute infarction. EXTRAAXIAL SPACES: No fluid collections. No masses. ORBITS AND GLOBE: No intra- or extraconal masses. Normal contour of globe without masses. CALVARIUM: No fracture. PARANASAL SINUSES: No fluid or mucosal thickening. SOFT TISSUES: No mass or hematoma. OTHER: No other significant finding. IMPRESSION: No acute intracranial pathology. Small vessel white matter disease in keeping with adva nced patient age. Encephalomalacia of the right cerebellar hemisphere, in keeping with remote prior infarction. EVIDENCE OF ACUTE STROKE: NO. COMMENT: Quality ID # [id number]: Final reports with documentation of one or more dose reduction techniques (e.g., Automated exposure control, adjustment of the mA and/or kV according to patient size, use of iterative reconstruction technique) TECHNICAL DOCUMENTATION: JOB ID: [id number] [employer]- All Rights Reserved Reading location - IP/workstation name: [email or web address]
--- NOTE | 2018-11-19 13:52 | RADIOLOGY REPORT (SQ) ---
EXAM DESCRIPTION: CT CERVICAL SPINE WITHOUT COMPLETED DATE/TIME: 11/19/2018 1:30 pm REASON FOR STUDY: FALL COMPARISON: None. TECHNIQUE: Axial images acquired through the cervical spine without intravenous contrast. Images re viewed with lung, soft tissue and bone windows. Reconstructed coronal and sagittal MPR images review ed. Images stored on PACS. All CT scanners at this facility use dose modulation, iterative reconstruction, and/or weight based d osing when appropriate to reduce radiation dose to as low as reasonably achievable (ALARA). [facility]: Dose Right [facility]: CareDose [facility]: Dose Right [facility]: Teradose 4D [facility]: Smart [employer] RADIATION DOSE: CT Rad equipment meets quality standard of care and radiation dose reduction techniq ues were employed. CTDIvol: 14.0 mGy. DLP: 290 mGy-cm. mGy. LIMITATIONS: None. FINDINGS: ALIGNMENT: Degenerative straightening and reversal of the normal cervical lordosis. MINERALIZATION: Normal. VERTEBRAL BODIES: No fractures or dislocation. DISCS: Severe multilevel disc degenerative disease and osteophytosis. FACETS, LATERAL MASSES, POSTERIOR ELEMENTS: No fractures. No dislocation. No acute findings. HARDWARE: None in the spine. VISUALIZED RIBS: No fractures. LUNG APICES AND SOFT TISSUES: No significant or acute findings. OTHER: No other significant finding. IMPRESSION: No fracture or static subluxation of the cervical spine. Severe multilevel disc degener ative disease. TECHNICAL DOCUMENTATION: JOB ID: [id number] Quality ID # [id number]: Final reports with documentation of one or more dose reduction techniques (e.g., Au tomated exposure control, adjustment of the mA and/or kV according to patient size, use of iterative reconstruction technique) 2010 [employer]- All Rights Reserved Reading location - IP/workstation name: [email or web address]
--- NOTE | 2018-11-19 15:07 | RADIOLOGY REPORT (SQ) ---
EXAM DESCRIPTION: HUMERUS LEFT COMPLETED DATE/TIME: 11/19/2018 2:58 pm REASON FOR STUDY: fall COMPARISON: None. NUMBER OF VIEWS: Two views. TECHNIQUE: Two radiographic images were acquired of the left humerus to include elbow and shoulder i n at least one projection. LIMITATIONS: None. FINDINGS: MINERALIZATION: Normal. BONES: No acute fracture or dislocation. No worrisome bone lesions. SOFT TISSUES: No obvious swelling or foreign body. OTHER: No other significant finding. IMPRESSION: NEGATIVE STUDY OF THE LEFT HUMERUS. NO RADIOGRAPHIC EVIDENCE OF ACUTE INJURY. TECHNICAL DOCUMENTATION: JOB ID: [id number] [employer]- All Rights Reserved Reading location - IP/workstation name: [email or web address]
--- NOTE | 2018-11-19 15:51 | ER Document Report ---
ED General - General Chief Complaint: Fall Stated Complaint: FALL,ARM INJURY Time Seen by Provider: 11/19/18 13:29 Primary Care Provider: BRODY MARTINEZ MD [Primary Care Provider] - Follow up as needed TRAVEL OUTSIDE OF THE [place] IN LAST 30 DAYS: No - HPI Patient complains to provider of: Fall Notes: Patient coming in today at the referral. Patient that she was getting up to go to bathroom she fell backwards hitting her head. Patient denies any loss of consciousness. Patient denies any fever chills nausea vomiting diarrhea. Patient otherwise is alert and awake oriented upon my evaluation complains of some pain in the left occipital region. Patient also complains of slight pain in the mid left humerus. Patient otherwise moving all 4 extremities and no obvious distress - Related Data Allergies/Adverse Reactions: atorvastatin calcium [From Lipitor] Allergy (Intermediate, Verified 08/29/17 19:26) MUSCLE PAIN [id number]-Yir Reductase Inhibitor Allergy (Verified 08/29/17 19:26) MUSCLE PAIN Past Medical History - Social History Smoking Status: Former Smoker Family History: Reviewed & Not Pertinent Patient has suicidal ideation: No Patient has homicidal ideation: No - Past Medical History Cardiac Medical History: Reports: Hx Atrial Fibrillation, Hx Coronary Artery Disease, Hx Heart Attack - 1998, Hx Hypercholesterolemia, Hx Hypertension Denies: Hx Congestive Heart Failure, Hx Peripheral Vascular Disease, Hx Pulmonary Embolism, Hx Heart Murmur Pulmonary Medical History: Reports: Hx Asthma, Hx Bronchitis, Hx COPD, Hx Pneumonia - many times, Hx Sleep Apnea - CPAP Neurological Medical History: Reports: Hx Cerebrovascular Accident - 2001. Denies: Hx Seizures Endocrine Medical History: Reports: Hx Diabetes Mellitus Type 2. Denies: Hx Graves' Disease, Hx Hyperthyroidism, Hx Hypothyroidism Renal/ Medical History: Denies: Hx End Stage Renal Disease, Hx Kidney Stones, Hx Peritoneal Dialysis Malignancy Medical History: Denies: Hx Leukemia, Hx Lung Cancer GI Medical History: Reports: Hx Gastroesophageal Reflux Disease - takes Nexium. Denies: Hx Crohn's Disease, Hx Hepatitis, Hx Hiatal Hernia, Hx Irritable Bowel, Hx Liver Failure, Hx Pancreatitis, Hx Ulcer Musculoskeletal Medical History: Reports Hx Arthritis, Denies Hx Fibromyalgia, Denies Hx Multiple Sclerosis, Denies Hx Muscular Dystrophy Psychiatric Medical History: Reports: Hx Depression Denies: Hx Bipolar Disorder, Hx Dementia, Hx Post Traumatic Stress Disorder, Hx Schizophrenia Traumatic Medical History: Denies: Hx Fractures Infectious Medical History: Denies: Hx Hepatitis, Hx HIV Past Surgical History: Reports: Hx Appendectomy, Hx Cardiac Catheterization, Hx Cholecystectomy, Hx Hysterectomy, Hx Open Heart Surgery - CARDIAC CATH, Hx Tonsillectomy. Denies: Hx Bowel Surgery, Hx Section, Hx Colostomy, Hx Coronary Artery Bypass Graft, Hx Gastric Bypass Surgery, Hx Herniorrhaphy, Hx Mastectomy, Hx Pacemaker, Hx Tubal Ligation - Immunizations Hx Pneumococcal Vaccination: 05/03/16 Review of Systems - Review of Systems Constitutional: Other - Hip pain left arm pain EENT: No symptoms reported Cardiovascular: No symptoms reported Respiratory: No symptoms reported Gastrointestinal: No symptoms reported Genitourinary: No symptoms reported Female Genitourinary: No symptoms reported Musculoskeletal: No symptoms reported Skin: No symptoms reported Hematologic/Lymphatic: No symptoms reported Neurological/Psychological: No symptoms reported -: Yes All other systems reviewed and negative Physical Exam - Vital signs Vitals: Temp Pulse Resp BP Pulse Ox 98.0 F 59 L 18 147/76 H 93 11/19/18 13:07 11/19/18 13:07 11/19/18 13:07 11/19/18 13:07 11/19/18 13:07 Interpretation: Normal - General General appearance: Appears well, Alert - HEENT Head: Normocephalic, Other - small palpable hematoma to the left occipital region Eyes: Normal Pupils: PERRL - Respiratory Respiratory status: No respiratory distress Chest status: Nontender Breath sounds: Normal Chest palpation: Normal - Cardiovascular Rhythm: Regular Heart sounds: Normal auscultation Murmur: No - Abdominal Inspection: Normal Distension: No distension Bowel sounds: Normal Tenderness: Nontender Organomegaly: No organomegaly - Back Back: Normal, Nontender - Extremities General upper extremity: Nontender, Normal color, Normal ROM, Normal temperature. No: Normal inspection - Skin tear to the left elbow General lower extremity: Normal inspection, Nontender, Normal color, Normal ROM, Normal temperature, Normal weight bearing. No: Nigel's sign - Neurological Neuro grossly intact: Yes Cognition: Normal Orientation: AAOx4 [place] Coma Scale Eye Opening: Spontaneous [place] Coma Scale Verbal: Oriented [place] Coma Scale Motor: Obeys Commands [place] Coma Scale Total: 15 Speech: Normal Motor strength normal: LUE, RUE, LLE, RLE Sensory: Normal - Psychological Associated symptoms: Normal affect, Normal mood - Skin Skin Temperature: Warm Skin Moisture: Dry Skin Color: Normal Course - Re-evaluation Re-evalutation: 11/19/18 15:48 Patient coming in after a fall. Patient had a CT of the head and of the neck performed that was otherwise negative. X-ray of the left humerus was also performed showing no signs of fracture. Skin tear was dressed by the staff. Will discharge patient home. - Vital Signs Vital signs: Temp Pulse Resp BP Pulse Ox 98.0 F 59 L 18 147/76 H 93 11/19/18 13:07 11/19/18 13:07 11/19/18 13:07 11/19/18 13:07 11/19/18 13:07 Discharge - Discharge Clinical Impression: Skin tear of elbow without complication Qualifiers: Encounter type: initial encounter Laterality: left Qualified Code(s): S51.012A - Laceration without foreign body of left elbow, initial encounter Fall Qualifiers: Encounter type: initial encounter Qualified Code(s): W19.XXXA - Unspecified fall, initial encounter Condition: Good Disposition: HOME, SELF-CARE Instructions: Skin Tear ([facility]) Additional Instructions: Your CAT scans did not show any signs of critical pathology. No signs of intracranial bleeding no signs of any fracture. Please make sure you have appropriate footwear on when trying to ambulate make sure that there are no rugs loose items on the floor that are a tripping hazard. Please use all assist devices as recommended by your primary care physician return to the ER symptoms worsen. Referrals: BRODY MARTINEZ MD [Primary Care Provider] - Follow up as needed
== END 2018-11-19 16:51 | disposition home or self-care (01) ==
LOC: ER 12:56
DX: S51.012A Laceration without foreign body of left elbow, initial encounter (principal); S00.03XA Contusion of scalp, initial encounter; R51 Headache; M89.8X2 Other specified disorders of bone, upper arm; M25.559 Pain in unspecified hip; W19.XXXA Unspecified fall, initial encounter; Y93.89 Activity, other specified; I25.10 Atherosclerotic heart disease of native coronary artery without angina pectoris; I10 Essential (primary) hypertension; J44.9 Chronic obstructive pulmonary disease, unspecified; E11.9 Type 2 diabetes mellitus without complications; Z88.8 Allergy status to other drugs, medicaments and biological substances; Z87.891 Personal history of nicotine dependence
CPT/HCPCS: 70450; 72125; 99284